=== PATIENT | female | born 1930 | race African-American/Black ===

== ENCOUNTER 2018-05-12 08:47 | Emergency (ER) | payer MEDICAID ==
[~2018-05-12] VITALS: Ht 152.4 cm; Wt 43.0 kg
[~2018-05-12 08:47] MED LIST: LORA10TA7 PO; MEMA10TA19 PO; Multivitamins,Ther W-Minerals PO; PRED1DRO BOTHEYE; SIMV20TA2 PO
[2018-05-12 11:45] VITALS: BP 126/69
== END 2018-05-12 12:40 | disposition home or self-care (01) ==
LOC: ER 08:47
DX: L03.116 Cellulitis of left lower limb (principal); L03.115 Cellulitis of right lower limb; I87.8 Other specified disorders of veins
CPT/HCPCS: 93971; 99284

== ENCOUNTER 2018-06-18 13:59 | Inpatient (IN) | payer MEDICAID ==
[~2018-06-18] VITALS: Ht 152.4 cm; Wt 43.1 kg
[2018-06-18] MEDS ORDERED: ASPI-1159 MT (14:24)
[2018-06-18] MEDS ORDERED: TYLENOL (14:24)
[2018-06-18] MEDS ORDERED: VANCOMYCIN 1 G PREMIX 200 ML IV ONE (15:15)
[2018-06-18] MEDS ORDERED: PIPERACILLIN/TAZ 3.375G PREMIX 50 ML IV ONE (15:15)
[2018-06-18] MEDS ORDERED: SODIUM CHLORIDE 0.9% 1000ML BAG (SEPSIS BOLUS) IV ONE (15:15)
[2018-06-18 16:14] LABS: BASOPHILS % 0.4 % (0.0-2.0); EOSINOPHILS % 0.1 % (0.0-5.0); HEMATOCRIT. 39.3 % (36.0-48.0); HEMOGLOBIN. 12.8 g/dL (12.0-16.0); LYMPHOCYTES % 22.5 % (20.0-50.0); MEAN CORPUSCULAR HEMOGLOBIN 30.5 pg (28.0-32.0); MEAN CORPUSCULAR VOLUME 93.5 fL (81.0-99.0); MEAN PLATELET VOLUME 7.2 fl (7.4-10.4); MONOCYTES % 6.1 % (2.0-8.0); NEUTROPHILS % 70.9 % (40.0-76.0); PLATELET 287 x1000/uL (130-400); RED CELL DISTRIBUTION WIDTH 15.6 % (11.6-14.6)
[2018-06-18 16:20] LABS: CHLORIDE 102 mEq/L (98-107)
[2018-06-18 16:21] LABS: INR 1.1
[2018-06-18 16:29] LABS: CREATINE KINASE 174 IU/L (26-192)
[2018-06-18] MEDS ORDERED: ACETAMINOPHEN 325MG TABLET PO PRN (20:00)
[2018-06-18] MEDS ORDERED: ONDANSETRON HCL 4MG/2ML INJ IV PRN (20:00)
[2018-06-18] MEDS ORDERED: CLONIDINE 0.1MG TABLET PO PRN (20:00)
[2018-06-19] VITALS: BP 138/68
[2018-06-19] MEDS ORDERED: PIPERACILLIN/TAZ 3.375G PREMIX 50 ML IV SCH (02:00)
[2018-06-19] MEDS ORDERED: ACET167L14 PO (02:00)
[2018-06-19 02:39] VITALS: BP 137/78
[2018-06-19] MEDS: PIPERACILLIN/TAZ 2.25G PREMIX 50 ML IV SCH ×4 (02:39→21:13)
[2018-06-19 04:00] VITALS: BP 123/68
[2018-06-19 08:00] VITALS: BP 86/61
[2018-06-19 11:34] LABS: BASOPHILS % 0.1 % (0.0-2.0); EOSINOPHILS % 0.1 % (0.0-5.0); HEMATOCRIT. 36.4 % (36.0-48.0); HEMOGLOBIN. 11.8 g/dL (12.0-16.0); LYMPHOCYTES % 19.9 % (20.0-50.0); MEAN CORPUSCULAR HEMOGLOBIN 30.3 pg (28.0-32.0); MEAN CORPUSCULAR VOLUME 93.5 fL (81.0-99.0); MEAN PLATELET VOLUME 7.7 fl (7.4-10.4); MONOCYTES % 5.6 % (2.0-8.0); NEUTROPHILS % 74.3 % (40.0-76.0); PLATELET 285 x1000/uL (130-400); RED BLOOD CELL COUNT 3.89 mill/uL (4.2-5.4); RED CELL DISTRIBUTION WIDTH 15.3 % (11.6-14.6)
[2018-06-19 11:57] LABS: CHLORIDE 102 mEq/L (98-107)
[2018-06-19] MEDS ORDERED: VANCOMYCIN 1250MG in DEXTROSE 5% WATER 250ML IV SCH (14:00)
[2018-06-19] MEDS: VANCOMYCIN IV SCH (14:44)
[2018-06-19] MEDS: WATER IV SCH (14:44)
[2018-06-19] MEDS: DEXT 5% IV SCH (14:44)
[2018-06-19 16:00] VITALS: BP 102/52
[2018-06-19] MEDS ORDERED: ENOXAPARIN 30MG/0.3ML SYR SUBCUT SCH (17:30)
[2018-06-19 20:00] VITALS: BP 107/67
[2018-06-20] VITALS: BP 96/74
[2018-06-20] MEDS: PIPERACILLIN/TAZ 2.25G PREMIX 50 ML IV SCH ×3 (02:20→14:00)
[2018-06-20] MEDS: VANCOMYCIN IV SCH ×2 (03:10→14:00)
[2018-06-20] MEDS: WATER IV SCH ×2 (03:10→14:00)
[2018-06-20] MEDS: DEXT 5% IV SCH ×2 (03:10→14:00)
[2018-06-20 04:00] VITALS: BP 120/53
[2018-06-20 07:21] LABS: BASOPHILS % 0.3 % (0.0-2.0); EOSINOPHILS % 0.2 % (0.0-5.0); HEMATOCRIT. 31.3 % (36.0-48.0); HEMOGLOBIN. 10.6 g/dL (12.0-16.0); MEAN CORPUSCULAR HEMOGLOBIN 31.1 pg (28.0-32.0); MEAN PLATELET VOLUME 7.7 fl (7.4-10.4); MONOCYTES % 6.3 % (2.0-8.0); NEUTROPHILS % 68.2 % (40.0-76.0); PLATELET 299 x1000/uL (130-400); RED BLOOD CELL COUNT 3.41 mill/uL (4.2-5.4); RED CELL DISTRIBUTION WIDTH 15.1 % (11.6-14.6)
[2018-06-20 07:28] LABS: CHLORIDE 102 mEq/L (98-107)
[2018-06-20 08:00] VITALS: BP 115/65
[2018-06-20] MEDS ORDERED: POTASSIUM CHLORIDE 20MEQ TABLET SR PO SCH (12:30)
[2018-06-20 12:47] VITALS: BP_SYST 118; BP_SYST 129; BP_DIAS 86; BP_DIAS 91
== END 2018-06-20 17:15 | disposition home health service (06) | DRG 720 ==
LOC: ER 13:59 → 8WST 17:05 → EDBEDREQTM 17:23 → EDBEDREQSVC 17:23 → EDBEDREQ 17:23 → ENRESERV 20:31
PROVIDERS: ADMIT Internal Medicine; ATTEND Internal Medicine
DX: A41.9 Sepsis, unspecified organism (principal); E43 Unspecified severe protein-calorie malnutrition; L89.150 Pressure ulcer of sacral region, unstageable; G93.49 Other encephalopathy; L89.210 Pressure ulcer of right hip, unstageable; L89.524 Pressure ulcer of left ankle, stage 4; L89.890 Pressure ulcer of other site, unstageable; F03.90 Unspecified dementia, unspecified severity, without behavioral disturbance, psychotic disturbance, mood disturbance, and anxiety; J44.9 Chronic obstructive pulmonary disease, unspecified; E78.00 Pure hypercholesterolemia, unspecified; E78.5 Hyperlipidemia, unspecified; E89.0 Postprocedural hypothyroidism; R62.7 Adult failure to thrive; Z74.01 Bed confinement status; Z86.73 Personal history of transient ischemic attack (TIA), and cerebral infarction without residual deficits; Z68.1 Body mass index [BMI] 19.9 or less, adult; Z79.82 Long term (current) use of aspirin; Z79.899 Other long term (current) drug therapy
CPT/HCPCS: 36415; 71045; 80048; 82550; 83036; 83605; 93005; 93970; 96365; 96366; 96367; 99291; A6261; J1650; J2543; J3370; J7030; J7040; J7060; A4315

== ENCOUNTER 2018-07-14 21:29 | Inpatient (IN) | payer MEDICAID ==
[~2018-07-14] VITALS: Ht 154.9 cm; Wt 56.7 kg
[~2018-07-14 21:29] MED LIST changes: +ACET167L14 PO; +ASPI-1159 MT
[2018-07-15] VITALS (10 sets, daily range): BP systolic 93–139; BP diastolic 54–91
[2018-07-15] MEDS ORDERED: PIPERACILLIN/TAZ 3.375G PREMIX 50 ML IV ONE (00:45)
[2018-07-15] MEDS ORDERED: VANCOMYCIN 1 G PREMIX 200 ML IV ONE (00:45)
[2018-07-15] MEDS ORDERED: SODIUM CHLORIDE 0.9% 1000ML BAG (SEPSIS BOLUS) IV ONE (00:45)
[2018-07-15 03:49] LABS: CHLORIDE 113 mEq/L (98-107)
[2018-07-15 03:51] LABS: HEMATOCRIT. 31.1 % (36.0-48.0); HEMOGLOBIN. 9.9 g/dL (12.0-16.0); MEAN CORPUSCULAR VOLUME 94.8 fL (81.0-99.0); MEAN PLATELET VOLUME 7.5 fl (7.4-10.4); PLATELET 236 x1000/uL (130-400); RED BLOOD CELL COUNT 3.29 mill/uL (4.2-5.4); RED CELL DISTRIBUTION WIDTH 14.8 % (11.6-14.6)
[2018-07-15 03:56] LABS: INR 1.1; PROTHROMBIN TIME 11.3 sec (9.1-11.1)
[2018-07-15 04:16] LABS: CLARITY URINE CLEAR (CLEAR); COLOR URINE YELLOW (YELLOW); KETONES URINE NEGATIVE (NEGATIVE); LEUKOCYTE ESTERASE URINE 3+ (NEGATIVE); NITRITE URINE POSITIVE (NEGATIVE); OCCULT BLOOD URINE 1+ (NEGATIVE); PH URINE 6.5 (4.5-8.0); PROTEIN URINE NEGATIVE (NEGATIVE); SPECIFIC GRAVITY URINE 1.009 (1.005-1.030); UROBILINOGEN URINE 0.2 E.U./dL (0.2-1.0)
[2018-07-15 04:54] LABS: PLATELET ESTIMATE NORMAL
[2018-07-15] MEDS: SODIUM CHLORIDE 0.9% 1,000 ML IV SCH (08:00)
[2018-07-15] MEDS: ENOXAPARIN 30MG/0.3ML SYR SUBCUT SCH (09:00)
[2018-07-15 09:42] LABS: INR 1.2; PARTIAL THROMBOPLASTIN TIME 32.4 sec (23.4-31.0); PROTHROMBIN TIME 11.7 sec (9.1-11.1)
[2018-07-15] MEDS ORDERED: DEXTROSE 50% WATER 50ML SYRINGE IV SCH (09:45)
[2018-07-15 09:57] LABS: PHOSPHORUS 2.5 mg/dL (2.5-4.9)
[2018-07-15] MEDS ORDERED: PIPERACILLIN/TAZ 2.25G PREMIX 50 ML IV SCH (10:00)
[2018-07-15] MEDS: ONDANSETRON HCL 4MG/2ML INJ IV PRN (10:31)
[2018-07-15] MEDS: DIPHENHYDRAMINE 50MG/ML VIAL IV PRN ×2 (10:32→18:03)
[2018-07-15] MEDS ORDERED: DILTIAZEM HCL 5MG/ML 5ML VIAL IV PRN (11:45)
[2018-07-15] MEDS: PIPERACILLIN/TAZ 2.25G PREMIX 50 ML IV SCH ×2 (12:00→18:11)
[2018-07-15] MEDS ORDERED: LIDOCAINE HCL/EPINEPHRINE 1%-EPI 1:100,000 20 ML VIAL INFIL NR (14:00)
[2018-07-15] MEDS: DILTIAZEM HCL 30MG TABLET PO SCH ×2 (14:00→21:07)
[2018-07-15] MEDS: DEXTROSE 5% WATER 1,000 ML IV SCH (18:31)
[2018-07-15] MEDS: DEXTROSE 50% WATER 50ML SYRINGE IV PRN (20:57)
[2018-07-15] MEDS: BLOOD SUGAR DIAGNOSTIC STRIP TEST SCH (20:57)
[2018-07-15] MEDS: INSULIN LISPRO 100 UNITS/ML SUBCUT SCH (20:57)
[2018-07-15 23:51] LABS: CREATINE KINASE 193 IU/L (26-192)
[2018-07-16] VITALS (17 sets, daily range): BP systolic 98–161; BP diastolic 46–83
[2018-07-16] MEDS: PIPERACILLIN/TAZ 2.25G PREMIX 50 ML IV SCH ×3 (01:12→17:36)
[2018-07-16] MEDS: VANCOMYCIN 500 MG PREMIX 100 ML IV SCH ×2 (04:15→22:20)
[2018-07-16] MEDS: DILTIAZEM HCL 30MG TABLET PO SCH ×2 (06:08→16:13)
[2018-07-16] MEDS: DEXTROSE 5% WATER 1,000 ML IV SCH ×2 (07:00→16:06)
[2018-07-16] MEDS: BLOOD SUGAR DIAGNOSTIC STRIP TEST SCH ×9 (07:30→23:00)
[2018-07-16] MEDS: DEXTROSE 50% WATER 50ML SYRINGE IV PRN ×3 (07:56→14:45)
[2018-07-16] MEDS: INSULIN LISPRO 100 UNITS/ML SUBCUT SCH ×2 (08:00→13:00)
[2018-07-16] MEDS: SODIUM CHLORIDE 0.9% 1,000 ML IV SCH (08:00)
[2018-07-16] MEDS: ENOXAPARIN 30MG/0.3ML SYR SUBCUT SCH (09:10)
[2018-07-16 10:46] LABS: BASOPHILS % 0.2 % (0.0-2.0); EOSINOPHILS % 0.5 % (0.0-5.0); HEMATOCRIT. 31.1 % (36.0-48.0); HEMOGLOBIN. 9.8 g/dL (12.0-16.0); LYMPHOCYTES % 12.1 % (20.0-50.0); MEAN CORPUSCULAR HEMOGLOBIN 29.9 pg (28.0-32.0); MEAN CORPUSCULAR VOLUME 95.2 fL (81.0-99.0); MEAN PLATELET VOLUME 8.4 fl (7.4-10.4); MONOCYTES % 2.9 % (2.0-8.0); NEUTROPHILS % 84.3 % (40.0-76.0); PLATELET 203 x1000/uL (130-400); RED BLOOD CELL COUNT 3.26 mill/uL (4.2-5.4)
[2018-07-16] MEDS ORDERED: IOHEXOL-300 50 ML BOTTLE IV ONE (11:43)
[2018-07-16] MEDS ORDERED: DEXT 10% WATER 1,000 ML IV SCH (15:00)
[2018-07-16 15:56] LABS: CHLORIDE 103 mEq/L (98-107)
[2018-07-16 16:04] LABS: LDL CHOLESTEROL 67 mg/dL (5-100)
[2018-07-16 16:07] LABS: HDL CHOLESTEROL 27 mg/dL (40-59)
[2018-07-16 17:39] LABS: BASOPHILS % 0.1 % (0.0-2.0); HEMATOCRIT. 28.4 % (36.0-48.0); HEMOGLOBIN. 9.2 g/dL (12.0-16.0); LYMPHOCYTES % 10.5 % (20.0-50.0); MEAN CORPUSCULAR HEMOGLOBIN 30.1 pg (28.0-32.0); MEAN CORPUSCULAR VOLUME 93.2 fL (81.0-99.0); MEAN PLATELET VOLUME 7.9 fl (7.4-10.4); MONOCYTES % 2.5 % (2.0-8.0); NEUTROPHILS % 86.9 % (40.0-76.0); PLATELET 212 x1000/uL (130-400); RED BLOOD CELL COUNT 3.05 mill/uL (4.2-5.4); RED CELL DISTRIBUTION WIDTH 14.5 % (11.6-14.6)
[2018-07-16] MEDS ORDERED: KCL 20MEQ/100ML PREMIX 100 ML IV NR (21:00)
[2018-07-17] VITALS (15 sets, daily range): BP systolic 94–168; BP diastolic 46–85
[2018-07-17] MEDS: BLOOD SUGAR DIAGNOSTIC STRIP TEST SCH ×12 (01:00→21:33)
[2018-07-17] MEDS: PIPERACILLIN/TAZ 2.25G PREMIX 50 ML IV SCH ×3 (02:11→17:16)
[2018-07-17] MEDS: DILTIAZEM HCL 30MG TABLET PO SCH ×4 (02:27→21:33)
[2018-07-17] MEDS: DEXTROSE 5% WATER 1,000 ML IV SCH ×2 (05:29→17:17)
[2018-07-17 05:40] LABS: CHLORIDE 101 mEq/L (98-107)
[2018-07-17 05:42] LABS: BASOPHILS % 0.2 % (0.0-2.0); EOSINOPHILS % 0.2 % (0.0-5.0); HEMATOCRIT. 29.1 % (36.0-48.0); HEMOGLOBIN. 9.4 g/dL (12.0-16.0); LYMPHOCYTES % 13.8 % (20.0-50.0); MEAN CORPUSCULAR HEMOGLOBIN 30.1 pg (28.0-32.0); MEAN CORPUSCULAR VOLUME 93.3 fL (81.0-99.0); MEAN PLATELET VOLUME 8.6 fl (7.4-10.4); MONOCYTES % 2.5 % (2.0-8.0); NEUTROPHILS % 83.3 % (40.0-76.0); PLATELET 196 x1000/uL (130-400); RED BLOOD CELL COUNT 3.12 mill/uL (4.2-5.4); RED CELL DISTRIBUTION WIDTH 14.5 % (11.6-14.6)
[2018-07-17] MEDS: ENOXAPARIN 30MG/0.3ML SYR SUBCUT SCH (09:28)
[2018-07-17] MEDS ORDERED: LIDOCAINE HCL/EPINEPHRINE 1%-EPI 1:100,000 20 ML VIAL INFIL NR (10:30)
[2018-07-17] MEDS ORDERED: POTASSIUM CHLORIDE INJ 40 MEQ in DEXT 5% WATER 250 ML IV NR (11:00)
[2018-07-17] MEDS: VANCOMYCIN IV SCH ×2 (11:52→18:23)
[2018-07-17] MEDS: DEXT 5% IV SCH ×2 (11:52→18:23)
[2018-07-17] MEDS: WATER IV SCH ×2 (11:52→18:23)
[2018-07-17] MEDS: INSULIN LISPRO 100 UNITS/ML SUBCUT SCH ×3 (12:00→21:00)
[2018-07-18] MEDS: VANCOMYCIN IV SCH ×2 (05:56→16:29)
[2018-07-18] MEDS: WATER IV SCH ×2 (05:56→16:29)
[2018-07-18] MEDS: DEXT 5% IV SCH ×2 (05:56→16:29)
[2018-07-18] MEDS: PIPERACILLIN/TAZ 2.25G PREMIX 50 ML IV SCH ×3 (05:56→17:36)
[2018-07-18] MEDS: DILTIAZEM HCL 30MG TABLET PO SCH ×3 (06:19→21:19)
[2018-07-18] MEDS: BLOOD SUGAR DIAGNOSTIC STRIP TEST SCH ×4 (06:26→21:00)
[2018-07-18 07:29] LABS: CHLORIDE 98 mEq/L (98-107)
[2018-07-18 07:36] LABS: BASOPHILS % 0.2 % (0.0-2.0); HEMOGLOBIN. 8.4 g/dL (12.0-16.0); LYMPHOCYTES % 12.6 % (20.0-50.0); MEAN CORPUSCULAR HEMOGLOBIN 29.6 pg (28.0-32.0); MEAN CORPUSCULAR VOLUME 91.2 fL (81.0-99.0); MONOCYTES % 2.3 % (2.0-8.0); NEUTROPHILS % 84.9 % (40.0-76.0); PLATELET 225 x1000/uL (130-400); RED BLOOD CELL COUNT 2.85 mill/uL (4.2-5.4); RED CELL DISTRIBUTION WIDTH 14.1 % (11.6-14.6)
[2018-07-18] MEDS: INSULIN LISPRO 100 UNITS/ML SUBCUT SCH ×4 (08:00→21:00)
[2018-07-18 08:14] VITALS: BP 83/55
[2018-07-18] MEDS: ENOXAPARIN 30MG/0.3ML SYR SUBCUT SCH (09:00)
[2018-07-18 09:51] VITALS: BP 99/44
[2018-07-18] MEDS: DEXT 5%/0.45% NACL 1000ML 1,000 ML IV SCH (11:52)
[2018-07-18 11:53] VITALS: BP 90/41
[2018-07-18] MEDS ORDERED: DIGOXIN 500MCG/2ML AMP IV ONE ×3 (12:45→20:00)
[2018-07-18 13:55] VITALS: BP 109/92
[2018-07-18] MEDS ORDERED: LIDOCAINE HCL/EPINEPHRINE 1%-EPI 1:100,000 20 ML VIAL INFIL ONE (15:30)
[2018-07-18 16:00] VITALS: BP 107/54
[2018-07-18] MEDS ORDERED: WATER IV SCH (16:00)
[2018-07-18] MEDS ORDERED: VANCOMYCIN IV SCH (16:00)
[2018-07-18] MEDS ORDERED: DEXT 5% IV SCH (16:00)
[2018-07-18] MEDS: DIPHENHYDRAMINE 50MG/ML VIAL IV PRN (17:47)
[2018-07-18] MEDS ORDERED: DIGOXIN 500MCG/2ML AMP IV SCH (18:00)
[2018-07-18 18:11] VITALS: BP 110/83
[2018-07-19] VITALS (17 sets, daily range): BP systolic 56–123; BP diastolic 29–77
[2018-07-19] MEDS: DEXT 5%/0.45% NACL 1000ML 1,000 ML IV SCH (01:15)
[2018-07-19] MEDS: VANCOMYCIN IV SCH ×4 (01:15→23:27)
[2018-07-19] MEDS: DEXT 5% IV SCH ×4 (01:15→23:27)
[2018-07-19] MEDS: WATER IV SCH ×4 (01:15→23:27)
[2018-07-19] MEDS: DEXTROSE 50% WATER 50ML SYRINGE IV PRN ×5 (01:21→19:34)
[2018-07-19] MEDS: PIPERACILLIN/TAZ 2.25G PREMIX 50 ML IV SCH ×3 (03:16→21:43)
[2018-07-19] MEDS: DILTIAZEM HCL 30MG TABLET PO SCH (05:40)
[2018-07-19 05:53] LABS: CHLORIDE 102 mEq/L (98-107)
[2018-07-19 06:54] LABS: HEMOGLOBIN. 9.7 g/dL (12.0-16.0); MEAN CORPUSCULAR HEMOGLOBIN 29.9 pg (28.0-32.0); MEAN CORPUSCULAR VOLUME 95.1 fL (81.0-99.0); MEAN PLATELET VOLUME 8.4 fl (7.4-10.4); PLATELET 201 x1000/uL (130-400); RED BLOOD CELL COUNT 3.26 mill/uL (4.2-5.4); RED CELL DISTRIBUTION WIDTH 14.7 % (11.6-14.6)
[2018-07-19] MEDS: BLOOD SUGAR DIAGNOSTIC STRIP TEST SCH ×4 (07:30→21:00)
[2018-07-19] MEDS: INSULIN LISPRO 100 UNITS/ML SUBCUT SCH ×3 (08:00→21:00)
[2018-07-19] MEDS: ENOXAPARIN 30MG/0.3ML SYR SUBCUT SCH (09:00)
[2018-07-19 09:14] LABS: PLATELET ESTIMATE NORMAL
[2018-07-19] MEDS ORDERED: NON FORMULARY PATIENT HOME MED XX SCH (11:00)
[2018-07-19] MEDS: AMIODARONE HCL 200 MG TABLET PO SCH (14:03)
[2018-07-19] MEDS: DEXT 10%/0.45% NACL 1,000 ML IV SCH (14:04)
[2018-07-19] MEDS: DIGOXIN 250MCG TABLET PO SCH (17:52)
[2018-07-20] VITALS (14 sets, daily range): BP systolic 69–186; BP diastolic 19–126
[2018-07-20] MEDS: DEXT 10%/0.45% NACL 1,000 ML IV SCH ×2 (00:38→12:42)
[2018-07-20] MEDS: PIPERACILLIN/TAZ 2.25G PREMIX 50 ML IV SCH ×3 (05:05→23:57)
[2018-07-20 06:19] LABS: BASOPHILS % 0.2 % (0.0-2.0); EOSINOPHILS % 0.7 % (0.0-5.0); HEMATOCRIT. 27.3 % (36.0-48.0); HEMOGLOBIN. 8.9 g/dL (12.0-16.0); LYMPHOCYTES % 10.2 % (20.0-50.0); MEAN CORPUSCULAR VOLUME 92.2 fL (81.0-99.0); MEAN PLATELET VOLUME 8.2 fl (7.4-10.4); MONOCYTES % 3.2 % (2.0-8.0); NEUTROPHILS % 85.7 % (40.0-76.0); PLATELET 219 x1000/uL (130-400); RED BLOOD CELL COUNT 2.96 mill/uL (4.2-5.4); RED CELL DISTRIBUTION WIDTH 14.1 % (11.6-14.6)
[2018-07-20 06:37] LABS: CHLORIDE 97 mEq/L (98-107)
[2018-07-20] MEDS: BLOOD SUGAR DIAGNOSTIC STRIP TEST SCH ×4 (07:30→21:00)
[2018-07-20] MEDS ORDERED: POTASSIUM CHLORIDE 20MEQ/PACKET PO NR (07:45)
[2018-07-20] MEDS: INSULIN LISPRO 100 UNITS/ML SUBCUT SCH ×4 (08:00→22:04)
[2018-07-20] MEDS: AMIODARONE HCL 200 MG TABLET PO SCH ×2 (09:28→21:55)
[2018-07-20] MEDS: ENOXAPARIN 30MG/0.3ML SYR SUBCUT SCH (09:29)
[2018-07-20] MEDS: WATER IV SCH ×2 (09:29→17:45)
[2018-07-20] MEDS: VANCOMYCIN IV SCH ×2 (09:29→17:45)
[2018-07-20] MEDS: DEXT 5% IV SCH ×2 (09:29→17:45)
[2018-07-20] MEDS ORDERED: POTASSIUM CHLORIDE INJ 40 MEQ in DEXT 5% WATER 250 ML IV NR (09:30)
[2018-07-20] MEDS: DEXTROSE 50% WATER 50ML SYRINGE IV PRN (09:30)
[2018-07-20 17:10] LABS: CHLORIDE 102 mEq/L (98-107)
[2018-07-20] MEDS: DIGOXIN 250MCG TABLET PO SCH (17:45)
[2018-07-21] VITALS (13 sets, daily range): BP systolic 44–117; BP diastolic 26–92
[2018-07-21] MEDS: WATER IV SCH ×3 (00:31→22:05)
[2018-07-21] MEDS: DEXT 5% IV SCH ×3 (00:31→22:05)
[2018-07-21] MEDS: VANCOMYCIN IV SCH ×3 (00:31→22:05)
[2018-07-21] MEDS: DEXT 10%/0.45% NACL 1,000 ML IV SCH ×2 (02:29→16:15)
[2018-07-21] MEDS: PIPERACILLIN/TAZ 2.25G PREMIX 50 ML IV SCH ×3 (05:19→19:24)
[2018-07-21 07:30] LABS: BASOPHILS % 0.1 % (0.0-2.0); EOSINOPHILS % 0.6 % (0.0-5.0); HEMATOCRIT. 25.9 % (36.0-48.0); HEMOGLOBIN. 8.4 g/dL (12.0-16.0); LYMPHOCYTES % 8.6 % (20.0-50.0); MEAN CORPUSCULAR HEMOGLOBIN 29.6 pg (28.0-32.0); MEAN CORPUSCULAR VOLUME 91.2 fL (81.0-99.0); MONOCYTES % 3.4 % (2.0-8.0); NEUTROPHILS % 87.3 % (40.0-76.0); PLATELET 227 x1000/uL (130-400); RED BLOOD CELL COUNT 2.84 mill/uL (4.2-5.4); RED CELL DISTRIBUTION WIDTH 14.3 % (11.6-14.6)
[2018-07-21 07:34] LABS: CHLORIDE 99 mEq/L (98-107)
[2018-07-21 08:03] LABS: DIGOXIN 2.8 ng/mL (0.9-2.0)
[2018-07-21] MEDS: BLOOD SUGAR DIAGNOSTIC STRIP TEST SCH ×4 (08:26→21:00)
[2018-07-21] MEDS: INSULIN LISPRO 100 UNITS/ML SUBCUT SCH ×4 (08:53→21:00)
[2018-07-21] MEDS: AMIODARONE HCL 200 MG TABLET PO SCH ×2 (08:53→22:01)
[2018-07-21] MEDS: ENOXAPARIN 30MG/0.3ML SYR SUBCUT SCH (08:54)
[2018-07-21] MEDS: DEXT 5%/0.9% NACL 1,000 ML IV SCH (19:24)
[2018-07-22] VITALS (20 sets, daily range): BP systolic 67–138; BP diastolic 21–90
[2018-07-22] MEDS: PIPERACILLIN/TAZ 2.25G PREMIX 50 ML IV SCH ×5 (00:23→23:44)
[2018-07-22 06:08] LABS: BASOPHILS % 0.2 % (0.0-2.0); EOSINOPHILS % 0.6 % (0.0-5.0); HEMATOCRIT. 22.9 % (36.0-48.0); HEMOGLOBIN. 7.5 g/dL (12.0-16.0); LYMPHOCYTES % 7.6 % (20.0-50.0); MEAN CORPUSCULAR HEMOGLOBIN 30.1 pg (28.0-32.0); MEAN CORPUSCULAR VOLUME 91.5 fL (81.0-99.0); MEAN PLATELET VOLUME 8.1 fl (7.4-10.4); MONOCYTES % 2.9 % (2.0-8.0); NEUTROPHILS % 88.7 % (40.0-76.0); PLATELET 211 x1000/uL (130-400); RED CELL DISTRIBUTION WIDTH 14.4 % (11.6-14.6)
[2018-07-22] MEDS: INSULIN LISPRO 100 UNITS/ML SUBCUT SCH ×4 (08:00→21:00)
[2018-07-22] MEDS: DEXT 5% IV SCH ×2 (08:02→21:01)
[2018-07-22] MEDS: WATER IV SCH ×2 (08:02→21:01)
[2018-07-22] MEDS: VANCOMYCIN IV SCH ×2 (08:02→21:01)
[2018-07-22] MEDS: BLOOD SUGAR DIAGNOSTIC STRIP TEST SCH ×4 (08:20→21:16)
[2018-07-22] MEDS: AMIODARONE HCL 200 MG TABLET PO SCH ×2 (08:45→21:15)
[2018-07-22] MEDS: ASCORBIC ACID 500 MG TABLET NG SCH (08:45)
[2018-07-22 08:46] LABS: CHLORIDE 100 mEq/L (98-107)
[2018-07-22] MEDS: MULTIVITAMINS,THER W-MINERALS TABLET NG SCH (08:46)
[2018-07-22] MEDS: ZINC SULFATE 220 MG ( 50 ) CAPSULE NG SCH (08:46)
[2018-07-22] MEDS: ENOXAPARIN 30MG/0.3ML SYR SUBCUT SCH (08:46)
[2018-07-22 09:31] LABS: DIGOXIN 2.7 ng/mL (0.9-2.0)
[2018-07-22] MEDS: MIDODRINE HCL 5MG TABLET PO SCH ×3 (12:41→17:41)
[2018-07-22 17:17] LABS: TOTAL IRON BINDING CAPACITY 257 ug/dL (250-450)
[2018-07-22] MEDS: DIGOXIN 125MCG TABLET PO SCH (17:41)
[2018-07-22] MEDS: DEXT 5%/0.9% NACL 1,000 ML IV SCH (17:42)
[2018-07-22] MEDS: SODIUM HYPOCHLORITE 0.125% 473ML SOLUTION TOP SCH (21:01)
[2018-07-23] VITALS (16 sets, daily range): BP systolic 107–152; BP diastolic 47–82
[2018-07-23] MEDS: PIPERACILLIN/TAZ 2.25G PREMIX 50 ML IV SCH ×4 (05:48→23:33)
[2018-07-23 06:38] LABS: HEMATOCRIT. 21.3 % (36.0-48.0); MEAN CORPUSCULAR HEMOGLOBIN 29.2 pg (28.0-32.0); MEAN CORPUSCULAR VOLUME 90.5 fL (81.0-99.0); MEAN PLATELET VOLUME 7.8 fl (7.4-10.4); PLATELET 220 x1000/uL (130-400); RED BLOOD CELL COUNT 2.35 mill/uL (4.2-5.4); RED CELL DISTRIBUTION WIDTH 14.4 % (11.6-14.6)
[2018-07-23 06:58] LABS: INR 1.1; PARTIAL THROMBOPLASTIN TIME 31.4 sec (23.4-31.0); PROTHROMBIN TIME 10.9 sec (9.1-11.1)
[2018-07-23 07:15] LABS: CHLORIDE 102 mEq/L (98-107)
[2018-07-23 07:37] LABS: HEMOGLOBIN. 6.9 g/dL (12.0-16.0)
[2018-07-23] MEDS: INSULIN LISPRO 100 UNITS/ML SUBCUT SCH ×4 (08:00→21:00)
[2018-07-23] MEDS: BLOOD SUGAR DIAGNOSTIC STRIP TEST SCH ×4 (08:22→21:00)
[2018-07-23] MEDS: ASCORBIC ACID 500 MG TABLET NG SCH (08:39)
[2018-07-23] MEDS: WATER IV SCH (08:39)
[2018-07-23] MEDS: MULTIVITAMINS,THER W-MINERALS TABLET NG SCH ×2 (08:39→09:00)
[2018-07-23] MEDS: VANCOMYCIN IV SCH (08:39)
[2018-07-23] MEDS: DEXT 5% IV SCH (08:39)
[2018-07-23] MEDS: MIDODRINE HCL 5MG TABLET PO SCH ×4 (08:39→19:17)
[2018-07-23] MEDS: ZINC SULFATE 220 MG ( 50 ) CAPSULE NG SCH ×2 (08:40→09:00)
[2018-07-23] MEDS: AMIODARONE HCL 200 MG TABLET PO SCH ×3 (08:42→21:03)
[2018-07-23 13:13] LABS: HEMOGLOBIN 7.7 g/dL (12.0-16.0); MEAN CORPUSCULAR HEMOGLOBIN 29.9 pg (28.0-32.0); MEAN CORPUSCULAR VOLUME 93.6 fL (81.0-99.0); PLATELET 224 x1000/uL (130-400); RED BLOOD CELL COUNT 2.56 mill/uL (4.2-5.4); RED CELL DISTRIBUTION WIDTH 14.8 % (11.6-14.6)
[2018-07-23 13:31] LABS: PLATELET ESTIMATE NORMAL
[2018-07-23] MEDS ORDERED: SODIUM CHLORIDE 0.9% 10ML VIAL ONE (15:03)
[2018-07-23] MEDS ORDERED: SIMETHICONE 40 MG/0.6 ML 30ML ONE (15:03)
[2018-07-23] MEDS ORDERED: FENTANYL CITRATE/PF 50MCG/ML 2ML VIAL IV PRN (16:54)
[2018-07-23] MEDS ORDERED: MIDAZOLAM HCL 5 MG/5 ML VIAL IV PRN (16:56)
[2018-07-23] MEDS ORDERED: MIDAZOLAM HCL 5 MG/5 ML VIAL ONE (16:57)
[2018-07-23] MEDS ORDERED: FENTANYL CITRATE/PF 50MCG/ML 2ML VIAL ONE (16:57)
[2018-07-23] MEDS: DIGOXIN 125MCG TABLET PO SCH (19:17)
[2018-07-23] MEDS: DEXT 5%/0.9% NACL 1,000 ML IV SCH (19:18)
[2018-07-23] MEDS: SUCRALFATE 1 G/10 ML UDC GT SCH ×2 (19:21→23:33)
[2018-07-23] MEDS: METOCLOPRAMIDE HCL 10MG/2ML VIAL IV SCH ×2 (19:30→23:33)
[2018-07-23] MEDS: PANTOPRAZOLE SODIUM 40 MG/VIAL IV SCH (21:03)
[2018-07-24] VITALS (11 sets, daily range): BP systolic 125–153; BP diastolic 50–84
[2018-07-24] MEDS: SUCRALFATE 1 G/10 ML UDC GT SCH ×3 (05:04→17:36)
[2018-07-24] MEDS: METOCLOPRAMIDE HCL 10MG/2ML VIAL IV SCH ×3 (05:04→17:36)
[2018-07-24] MEDS: BLOOD SUGAR DIAGNOSTIC STRIP TEST SCH ×3 (05:04→18:51)
[2018-07-24] MEDS: INSULIN LISPRO 100 UNITS/ML SUBCUT SCH ×3 (05:05→18:00)
[2018-07-24] MEDS: PIPERACILLIN/TAZ 2.25G PREMIX 50 ML IV SCH ×3 (05:05→17:37)
[2018-07-24] MEDS ORDERED: VANCOMYCIN 500 MG PREMIX 100 ML IV SCH (06:00)
[2018-07-24 06:46] LABS: CHLORIDE 102 mEq/L (98-107)
[2018-07-24 07:09] LABS: HEMATOCRIT. 33.8 % (36.0-48.0); HEMOGLOBIN. 10.9 g/dL (12.0-16.0); MEAN CORPUSCULAR HEMOGLOBIN 29.7 pg (28.0-32.0); MEAN CORPUSCULAR VOLUME 91.8 fL (81.0-99.0); MEAN PLATELET VOLUME 8.1 fl (7.4-10.4); PLATELET 253 x1000/uL (130-400); RED BLOOD CELL COUNT 3.68 mill/uL (4.2-5.4); RED CELL DISTRIBUTION WIDTH 14.7 % (11.6-14.6)
[2018-07-24] MEDS: PANTOPRAZOLE SODIUM 40 MG/VIAL IV SCH ×2 (08:37→21:27)
[2018-07-24] MEDS: MULTIVITAMINS,THER W-MINERALS TABLET NG SCH (08:37)
[2018-07-24] MEDS: ASCORBIC ACID 500 MG TABLET NG SCH (08:37)
[2018-07-24] MEDS: ZINC SULFATE 220 MG ( 50 ) CAPSULE NG SCH (08:37)
[2018-07-24] MEDS: MIDODRINE HCL 5MG TABLET PO SCH ×3 (08:48→17:36)
[2018-07-24] MEDS: AMIODARONE HCL 200 MG TABLET PO SCH ×2 (08:59→21:27)
[2018-07-24 12:14] LABS: PLATELET ESTIMATE NORMAL
[2018-07-24] MEDS: SODIUM HYPOCHLORITE 0.125% 473ML SOLUTION TOP SCH (17:36)
[2018-07-24] MEDS: DIGOXIN 125MCG TABLET PO SCH (17:36)
[2018-07-24] MEDS: DEXT 5%/0.9% NACL 1,000 ML IV SCH (17:37)
[2018-07-24] MEDS: VANCOMYCIN 1 G PREMIX 200 ML IV SCH (21:27)
[2018-07-25] VITALS (9 sets, daily range): BP systolic 103–158; BP diastolic 48–72
[2018-07-25] MEDS: SUCRALFATE 1 G/10 ML UDC GT SCH ×5 (00:18→23:40)
[2018-07-25] MEDS: METOCLOPRAMIDE HCL 10MG/2ML VIAL IV SCH ×5 (00:18→23:40)
[2018-07-25] MEDS: PIPERACILLIN/TAZ 2.25G PREMIX 50 ML IV SCH ×5 (00:18→23:39)
[2018-07-25] MEDS: BLOOD SUGAR DIAGNOSTIC STRIP TEST SCH ×5 (00:25→23:31)
[2018-07-25] MEDS: DEXTROSE 50% WATER 50ML SYRINGE IV PRN (00:28)
[2018-07-25] MEDS: INSULIN LISPRO 100 UNITS/ML SUBCUT SCH ×5 (06:00→23:31)
[2018-07-25 07:04] LABS: HEMATOCRIT. 30.8 % (36.0-48.0); HEMOGLOBIN. 10.3 g/dL (12.0-16.0); MEAN CORPUSCULAR VOLUME 89.8 fL (81.0-99.0); MEAN PLATELET VOLUME 8.2 fl (7.4-10.4); PLATELET 280 x1000/uL (130-400); RED BLOOD CELL COUNT 3.43 mill/uL (4.2-5.4); RED CELL DISTRIBUTION WIDTH 14.4 % (11.6-14.6)
[2018-07-25 07:41] LABS: CHLORIDE 102 mEq/L (98-107)
[2018-07-25] MEDS: MULTIVITAMINS,THER W-MINERALS TABLET NG SCH (10:33)
[2018-07-25] MEDS: ZINC SULFATE 220 MG ( 50 ) CAPSULE NG SCH (10:34)
[2018-07-25] MEDS: PANTOPRAZOLE SODIUM 40 MG/VIAL IV SCH ×2 (10:34→20:28)
[2018-07-25] MEDS: ASCORBIC ACID 500 MG TABLET NG SCH (10:34)
[2018-07-25] MEDS: AMIODARONE HCL 200 MG TABLET PO SCH ×2 (10:34→20:28)
[2018-07-25 12:15] LABS: PLATELET ESTIMATE NORMAL
[2018-07-25] MEDS: MIDODRINE HCL 5MG TABLET PO SCH ×2 (13:35→17:00)
[2018-07-25] MEDS: DIGOXIN 125MCG TABLET PO SCH (18:09)
[2018-07-25] MEDS: DEXT 5%/0.9% NACL 1,000 ML IV SCH (18:09)
[2018-07-26] VITALS (7 sets, daily range): BP systolic 112–140; BP diastolic 54–65
[2018-07-26 05:49] LABS: HEMATOCRIT. 28.1 % (36.0-48.0); HEMOGLOBIN. 9.2 g/dL (12.0-16.0); MEAN CORPUSCULAR HEMOGLOBIN 29.5 pg (28.0-32.0); MEAN CORPUSCULAR VOLUME 90.1 fL (81.0-99.0); MEAN PLATELET VOLUME 8.1 fl (7.4-10.4); PLATELET 278 x1000/uL (130-400); RED BLOOD CELL COUNT 3.11 mill/uL (4.2-5.4); RED CELL DISTRIBUTION WIDTH 14.6 % (11.6-14.6)
[2018-07-26 06:00] LABS: CHLORIDE 105 mEq/L (98-107)
[2018-07-26] MEDS: INSULIN LISPRO 100 UNITS/ML SUBCUT SCH ×3 (06:00→18:08)
[2018-07-26] MEDS: BLOOD SUGAR DIAGNOSTIC STRIP TEST SCH ×3 (06:03→17:52)
[2018-07-26] MEDS: PIPERACILLIN/TAZ 2.25G PREMIX 50 ML IV SCH ×3 (06:18→17:52)
[2018-07-26] MEDS: SUCRALFATE 1 G/10 ML UDC GT SCH ×3 (06:18→17:39)
[2018-07-26] MEDS: METOCLOPRAMIDE HCL 10MG/2ML VIAL IV SCH ×3 (06:18→17:39)
[2018-07-26 06:24] LABS: DIGOXIN 2.7 ng/mL (0.9-2.0)
[2018-07-26] MEDS: ZINC SULFATE 220 MG ( 50 ) CAPSULE NG SCH (08:39)
[2018-07-26] MEDS: VANCOMYCIN 1 G PREMIX 200 ML IV SCH (08:39)
[2018-07-26] MEDS: MULTIVITAMINS,THER W-MINERALS TABLET NG SCH (08:39)
[2018-07-26] MEDS: PANTOPRAZOLE SODIUM 40 MG/VIAL IV SCH ×2 (08:39→20:49)
[2018-07-26] MEDS: ASCORBIC ACID 500 MG TABLET NG SCH (08:40)
[2018-07-26] MEDS: AMIODARONE HCL 200 MG TABLET PO SCH ×2 (09:04→20:49)
[2018-07-26] MEDS: MIDODRINE HCL 5MG TABLET PO SCH ×3 (09:05→17:00)
[2018-07-26] MEDS: IPRATROPIUM/ALBUTEROL 0.5-3(2.5)MG/3ML NEB INH PRN (09:06)
[2018-07-26 09:56] LABS: PLATELET ESTIMATE NORMAL
[2018-07-26] MEDS: METHYLPREDNISOLONE SOD SUCC 40 MG/ML VIAL IV SCH ×2 (11:03→17:40)
[2018-07-26] MEDS ORDERED: IPRATROPIUM/ALBUTEROL 0.5-3(2.5)MG/3ML NEB HHN SCH (12:00)
[2018-07-26] MEDS: IPRATROPIUM BROMIDE (0.02%) 0.5MG/2.5ML NEB HHN SCH ×2 (16:45→20:11)
[2018-07-26] MEDS: SODIUM HYPOCHLORITE 0.125% 473ML SOLUTION TOP SCH (16:53)
[2018-07-26] MEDS: SODIUM CHLORIDE 0.9% 1,000 ML IV SCH (17:41)
[2018-07-27] VITALS (7 sets, daily range): BP systolic 128–145; BP diastolic 52–73
[2018-07-27] MEDS: IPRATROPIUM BROMIDE (0.02%) 0.5MG/2.5ML NEB HHN SCH ×6 (00:11→22:10)
[2018-07-27] MEDS: ACETYLCYSTEINE 100MG/ML 10% VIAL 4ML INH SCH ×3 (00:11→15:51)
[2018-07-27] MEDS: BLOOD SUGAR DIAGNOSTIC STRIP TEST SCH ×4 (00:34→17:57)
[2018-07-27] MEDS: SUCRALFATE 1 G/10 ML UDC GT SCH ×4 (00:42→17:47)
[2018-07-27] MEDS: INSULIN LISPRO 100 UNITS/ML SUBCUT SCH ×4 (00:43→17:57)
[2018-07-27] MEDS: METOCLOPRAMIDE HCL 10MG/2ML VIAL IV SCH ×4 (00:43→17:47)
[2018-07-27] MEDS: METHYLPREDNISOLONE SOD SUCC 40 MG/ML VIAL IV SCH ×3 (01:02→22:43)
[2018-07-27 06:56] LABS: CHLORIDE 104 mEq/L (98-107)
[2018-07-27 07:06] LABS: HEMATOCRIT. 28.1 % (36.0-48.0); HEMOGLOBIN. 9.3 g/dL (12.0-16.0); MEAN CORPUSCULAR HEMOGLOBIN 30.3 pg (28.0-32.0); MEAN CORPUSCULAR VOLUME 91.5 fL (81.0-99.0); MEAN PLATELET VOLUME 8.2 fl (7.4-10.4); PLATELET 326 x1000/uL (130-400); RED BLOOD CELL COUNT 3.08 mill/uL (4.2-5.4); RED CELL DISTRIBUTION WIDTH 14.5 % (11.6-14.6)
[2018-07-27 07:45] LABS: DIGOXIN 2.2 ng/mL (0.9-2.0)
[2018-07-27 09:38] LABS: PLATELET ESTIMATE NORMAL
[2018-07-27] MEDS: ZINC SULFATE 220 MG ( 50 ) CAPSULE NG SCH (10:18)
[2018-07-27] MEDS: PANTOPRAZOLE SODIUM 40 MG/VIAL IV SCH ×2 (10:18→22:43)
[2018-07-27] MEDS: MIDODRINE HCL 5MG TABLET PO SCH ×3 (10:18→17:00)
[2018-07-27] MEDS: AMIODARONE HCL 200 MG TABLET PO SCH ×2 (10:18→22:42)
[2018-07-27] MEDS: ASCORBIC ACID 500 MG TABLET NG SCH (10:18)
[2018-07-27] MEDS: MULTIVITAMINS,THER W-MINERALS TABLET NG SCH (10:18)
[2018-07-27] MEDS ORDERED: DIGOXIN 125MCG TABLET PO SCH (18:00)
[2018-07-28] VITALS: BP 147/82
[2018-07-28] MEDS: IPRATROPIUM/ALBUTEROL 0.5-3(2.5)MG/3ML NEB INH PRN ×2 (00:28→14:57)
[2018-07-28] MEDS: ACETYLCYSTEINE 100MG/ML 10% VIAL 4ML INH SCH ×2 (00:28→14:57)
[2018-07-28] MEDS: IPRATROPIUM BROMIDE (0.02%) 0.5MG/2.5ML NEB HHN SCH ×4 (00:29→20:51)
[2018-07-28] MEDS: BLOOD SUGAR DIAGNOSTIC STRIP TEST SCH ×4 (00:42→18:00)
[2018-07-28] MEDS: METOCLOPRAMIDE HCL 10MG/2ML VIAL IV SCH ×4 (00:43→18:00)
[2018-07-28] MEDS: SUCRALFATE 1 G/10 ML UDC GT SCH ×4 (00:44→18:00)
[2018-07-28] MEDS: SODIUM CHLORIDE 0.9% 1,000 ML IV SCH (00:50)
[2018-07-28 04:00] VITALS: BP 142/77
[2018-07-28] MEDS: INSULIN LISPRO 100 UNITS/ML SUBCUT SCH ×4 (06:00→18:00)
[2018-07-28] MEDS: METHYLPREDNISOLONE SOD SUCC 40 MG/ML VIAL IV SCH ×2 (06:18→14:08)
[2018-07-28 08:03] VITALS: BP 106/64
[2018-07-28] MEDS: MIDODRINE HCL 5MG TABLET PO SCH ×3 (09:29→18:00)
[2018-07-28] MEDS: ASCORBIC ACID 500 MG TABLET NG SCH (09:30)
[2018-07-28] MEDS: MULTIVITAMINS,THER W-MINERALS TABLET NG SCH (09:30)
[2018-07-28] MEDS: ZINC SULFATE 220 MG ( 50 ) CAPSULE NG SCH (09:30)
[2018-07-28] MEDS: PANTOPRAZOLE SODIUM 40 MG/VIAL IV SCH (09:31)
[2018-07-28] MEDS: AMIODARONE HCL 200 MG TABLET PO SCH (09:31)
[2018-07-28] MEDS ORDERED: SODIUM BICARBONATE 4% (2.4MEQ) 5ML VIAL IV ONE ×2 (10:47→11:59)
[2018-07-28] MEDS ORDERED: LIDOCAINE HCL 1% 20ML VIAL (Pyxis) INJ ONE (11:59)
[2018-07-28 13:05] VITALS: BP 134/66
[2018-07-28] MEDS ORDERED: DILTIAZEM HCL 5MG/ML 5ML VIAL IV PRN (13:30)
[2018-07-28 15:26] LABS: CHLORIDE 107 mEq/L (98-107)
[2018-07-28 15:27] LABS: HEMATOCRIT. 28.4 % (36.0-48.0); HEMOGLOBIN. 9.6 g/dL (12.0-16.0); MEAN CORPUSCULAR HEMOGLOBIN 30.5 pg (28.0-32.0); MEAN CORPUSCULAR VOLUME 90.6 fL (81.0-99.0); MEAN PLATELET VOLUME 7.9 fl (7.4-10.4); PLATELET 395 x1000/uL (130-400); RED BLOOD CELL COUNT 3.14 mill/uL (4.2-5.4); RED CELL DISTRIBUTION WIDTH 15.1 % (11.6-14.6)
[2018-07-28 15:45] LABS: DIGOXIN 2.2 ng/mL (0.9-2.0)
[2018-07-28 16:00] VITALS: BP 132/68
[2018-07-28] MEDS: SODIUM HYPOCHLORITE 0.125% 473ML SOLUTION TOP SCH (16:00)
[2018-07-28 16:16] LABS: PLATELET ESTIMATE NORMAL
[2018-07-28 20:00] VITALS: BP 145/59
[2018-07-29] VITALS (12 sets, daily range): BP systolic 118–202; BP diastolic 61–110
[2018-07-29] MEDS: IPRATROPIUM BROMIDE (0.02%) 0.5MG/2.5ML NEB HHN SCH ×6 (02:17→21:01)
[2018-07-29] MEDS: ACETYLCYSTEINE 100MG/ML 10% VIAL 4ML INH SCH ×3 (02:17→15:55)
[2018-07-29] MEDS: METOCLOPRAMIDE HCL 10MG/2ML VIAL IV SCH ×4 (03:02→17:19)
[2018-07-29] MEDS: SUCRALFATE 1 G/10 ML UDC GT SCH ×4 (03:02→17:19)
[2018-07-29] MEDS: PANTOPRAZOLE SODIUM 40 MG/VIAL IV SCH ×3 (03:02→21:00)
[2018-07-29] MEDS: AMIODARONE HCL 200 MG TABLET PO SCH ×3 (03:02→21:00)
[2018-07-29] MEDS: METHYLPREDNISOLONE SOD SUCC 40 MG/ML VIAL IV SCH ×3 (03:03→11:58)
[2018-07-29] MEDS: BLOOD SUGAR DIAGNOSTIC STRIP TEST SCH ×4 (06:41→18:00)
[2018-07-29] MEDS: INSULIN LISPRO 100 UNITS/ML SUBCUT SCH ×4 (06:44→22:46)
[2018-07-29] MEDS: ASCORBIC ACID 500 MG TABLET NG SCH (10:05)
[2018-07-29] MEDS: MULTIVITAMINS,THER W-MINERALS TABLET NG SCH (10:06)
[2018-07-29] MEDS: ZINC SULFATE 220 MG ( 50 ) CAPSULE NG SCH (10:06)
[2018-07-29] MEDS: MIDODRINE HCL 5MG TABLET PO SCH ×3 (10:08→17:00)
[2018-07-29] MEDS: CLONIDINE 0.2MG TABLET PO PRN (21:08)
[2018-07-29 21:59] LABS: BG BASE EXCESS 0.5 mmol/L (-2.0-2.0); BG CARBOXYHEMOGLOBIN 0.6 % (0.5-1.5); BG DEOXYHEMOGLOBIN 8.3 % (0.0-5.0); BG FRACTION INSPIRED OXYGEN 32; BG HCO3 ACT 26.1 mmol/L (22.0-26.0); BG METHEMOGLOBIN 0.2 % (0.0-1.5); BG OXYGEN SATURATION 91.6 % (92.0-98.5); BG OXYHEMOGLOBIN 90.9 % (94.0-97.0); BG PH 7.371 (7.350-7.450); BG PO2 63.6 mmHg (75.0-100.0); BG SAMPLE SITE LEFT BRACHIAL; BG TOTAL HEMOGLOBIN 10.2 g/dL (12.0-18.0); BG VENT MODE NASAL CANNULA
[2018-07-29] MEDS ORDERED: ETOMIDATE 2MG/ML 10ML VIAL IV ONE (23:17)
[2018-07-29] MEDS ORDERED: SUCCINYLCHOLINE CHLORIDE 200MG/10ML IV ONE (23:17)
[2018-07-29 23:33] LABS: BG BASE EXCESS 0.7 mmol/L (-2.0-2.0); BG CARBOXYHEMOGLOBIN 0.3 % (0.5-1.5); BG DEOXYHEMOGLOBIN 0.9 % (0.0-5.0); BG FRACTION INSPIRED OXYGEN 80; BG METHEMOGLOBIN 0.2 % (0.0-1.5); BG OXYGEN SATURATION 99.1 % (92.0-98.5); BG OXYHEMOGLOBIN 98.6 % (94.0-97.0); BG PCO2 44.4 mmHg (35.0-45.0); BG PH 7.385 (7.350-7.450); BG PO2 189.6 mmHg (75.0-100.0); BG SAMPLE SITE RIGHT RADIAL; BG TIDAL VOLUME(mL) 400 mL; BG VENT MODE VENT - A/C; BG VENT RATE 14 set
[2018-07-29 23:35] LABS: HEMATOCRIT. 31.6 % (36.0-48.0); HEMOGLOBIN. 10.1 g/dL (12.0-16.0); MEAN CORPUSCULAR HEMOGLOBIN 29.5 pg (28.0-32.0); MEAN CORPUSCULAR VOLUME 92.5 fL (81.0-99.0); RED BLOOD CELL COUNT 3.42 mill/uL (4.2-5.4); RED CELL DISTRIBUTION WIDTH 15.8 % (11.6-14.6)
[2018-07-30] VITALS (94 sets, daily range): BP systolic 109–200; BP diastolic 45–105
[2018-07-30] MEDS ORDERED: PROPOFOL 10MG/ML 100ML 100 ML IV PRN (00:15)
[2018-07-30] MEDS: METOCLOPRAMIDE HCL 10MG/2ML VIAL IV SCH ×5 (00:22→23:53)
[2018-07-30] MEDS: SUCRALFATE 1 G/10 ML UDC GT SCH ×5 (00:22→23:52)
[2018-07-30] MEDS: BLOOD SUGAR DIAGNOSTIC STRIP TEST SCH ×5 (00:22→23:53)
[2018-07-30] MEDS: INSULIN LISPRO 100 UNITS/ML SUBCUT SCH ×5 (00:23→23:54)
[2018-07-30] MEDS: SODIUM CHLORIDE 0.9% 1,000 ML IV SCH ×2 (00:32→17:00)
[2018-07-30 00:42] LABS: CHLORIDE 110 mEq/L (98-107)
[2018-07-30 00:54] LABS: MEAN PLATELET VOLUME 8.4 fl (7.4-10.4); PLATELET 387 x1000/uL (130-400)
[2018-07-30] MEDS: ACETYLCYSTEINE 100MG/ML 10% VIAL 4ML INH SCH ×3 (01:47→16:12)
[2018-07-30] MEDS: IPRATROPIUM BROMIDE (0.02%) 0.5MG/2.5ML NEB HHN SCH ×6 (01:48→20:26)
[2018-07-30 02:14] LABS: PLATELET ESTIMATE NORMAL
[2018-07-30] MEDS: CLONIDINE 0.2MG TABLET PO PRN (03:07)
[2018-07-30] MEDS ORDERED: SODIUM POLYSTYRENE SULFONATE 15 G/60 ML BOT PO NR (06:00)
[2018-07-30] MEDS ORDERED: SODIUM POLYSTYRENE SULFONATE 15 G/60 ML BOT PO ONE (06:00)
[2018-07-30 06:20] LABS: HEMATOCRIT. 24.1 % (36.0-48.0); HEMOGLOBIN. 8.1 g/dL (12.0-16.0); MEAN CORPUSCULAR HEMOGLOBIN 30.3 pg (28.0-32.0); MEAN CORPUSCULAR VOLUME 90.5 fL (81.0-99.0); PLATELET 337 x1000/uL (130-400); RED BLOOD CELL COUNT 2.66 mill/uL (4.2-5.4); RED CELL DISTRIBUTION WIDTH 15.3 % (11.6-14.6)
[2018-07-30 06:42] LABS: CHLORIDE 109 mEq/L (98-107)
[2018-07-30 07:12] LABS: PLATELET ESTIMATE NORMAL
[2018-07-30] MEDS ORDERED: POTASSIUM CHLORIDE 10MEQ TABLET SR PO ONE (08:30)
[2018-07-30] MEDS ORDERED: FUROSEMIDE 40MG/4ML VIAL IVP NR (08:30)
[2018-07-30] MEDS ORDERED: PREDNISONE 20MG TABLET PO SCH (09:00)
[2018-07-30] MEDS: ASCORBIC ACID 500 MG TABLET NG SCH (09:00)
[2018-07-30] MEDS: PANTOPRAZOLE SODIUM 40 MG/VIAL IV SCH ×2 (10:21→20:40)
[2018-07-30] MEDS: ZINC SULFATE 220 MG ( 50 ) CAPSULE NG SCH (10:21)
[2018-07-30] MEDS: MULTIVITAMINS,THER W-MINERALS TABLET NG SCH (10:22)
[2018-07-30] MEDS: MIDODRINE HCL 5MG TABLET PO SCH ×3 (10:22→19:22)
[2018-07-30] MEDS: AMIODARONE HCL 200 MG TABLET PO SCH ×2 (10:22→20:40)
[2018-07-30] MEDS: CEFTRIAXONE 1,000 MG in DEXTROSE 5% WATER 50 ML IV SCH (11:37)
[2018-07-30 13:54] LABS: BG BASE EXCESS 0.7 mmol/L (-2.0-2.0); BG CARBOXYHEMOGLOBIN 0.2 % (0.5-1.5); BG CPAP (cmH2O) 0 cm(H2O); BG DEOXYHEMOGLOBIN 2.7 % (0.0-5.0); BG HCO3 ACT 26.8 mmol/L (22.0-26.0); BG METHEMOGLOBIN 0.3 % (0.0-1.5); BG OXYGEN SATURATION 97.3 % (92.0-98.5); BG OXYHEMOGLOBIN 96.8 % (94.0-97.0); BG PCO2 50.3 mmHg (35.0-45.0); BG PH 7.345 (7.350-7.450); BG PO2 103.5 mmHg (75.0-100.0); BG SAMPLE SITE RIGHT RADIAL; BG TOTAL HEMOGLOBIN 10.7 g/dL (12.0-18.0); BG VENT MODE VENT - CPAP
[2018-07-30] MEDS: SODIUM HYPOCHLORITE 0.125% 473ML SOLUTION TOP SCH (16:00)
[2018-07-31] VITALS (94 sets, daily range): BP systolic 107–160; BP diastolic 47–88
[2018-07-31] MEDS: ACETYLCYSTEINE 100MG/ML 10% VIAL 4ML INH SCH ×3 (00:27→15:50)
[2018-07-31] MEDS: IPRATROPIUM BROMIDE (0.02%) 0.5MG/2.5ML NEB HHN SCH ×5 (00:27→20:00)
[2018-07-31 05:33] LABS: HEMATOCRIT. 28.2 % (36.0-48.0); HEMOGLOBIN. 9.3 g/dL (12.0-16.0); MEAN CORPUSCULAR HEMOGLOBIN 30.2 pg (28.0-32.0); MEAN CORPUSCULAR VOLUME 91.9 fL (81.0-99.0); PLATELET 442 x1000/uL (130-400); RED BLOOD CELL COUNT 3.07 mill/uL (4.2-5.4); RED CELL DISTRIBUTION WIDTH 15.8 % (11.6-14.6)
[2018-07-31 05:40] LABS: CHLORIDE 109 mEq/L (98-107)
[2018-07-31] MEDS: SUCRALFATE 1 G/10 ML UDC GT SCH ×4 (05:41→23:55)
[2018-07-31] MEDS: METOCLOPRAMIDE HCL 10MG/2ML VIAL IV SCH ×4 (05:41→23:55)
[2018-07-31] MEDS: INSULIN LISPRO 100 UNITS/ML SUBCUT SCH ×4 (05:41→23:56)
[2018-07-31] MEDS: BLOOD SUGAR DIAGNOSTIC STRIP TEST SCH ×4 (05:42→23:56)
[2018-07-31 06:07] LABS: DIGOXIN 1.5 ng/mL (0.9-2.0)
[2018-07-31] MEDS: MIDODRINE HCL 5MG TABLET PO SCH ×3 (09:43→17:06)
[2018-07-31] MEDS: PANTOPRAZOLE SODIUM 40 MG/VIAL IV SCH ×2 (09:43→20:39)
[2018-07-31] MEDS: MULTIVITAMINS,THER W-MINERALS TABLET NG SCH (09:44)
[2018-07-31] MEDS: AMIODARONE HCL 200 MG TABLET PO SCH ×2 (09:44→20:39)
[2018-07-31] MEDS: ZINC SULFATE 220 MG ( 50 ) CAPSULE NG SCH (09:44)
[2018-07-31 09:45] LABS: BG BASE EXCESS 3.5 mmol/L (-2.0-2.0); BG CARBOXYHEMOGLOBIN 0.1 % (0.5-1.5); BG DEOXYHEMOGLOBIN 3.5 % (0.0-5.0); BG FRACTION INSPIRED OXYGEN 60; BG HCO3 ACT 29.2 mmol/L (22.0-26.0); BG METHEMOGLOBIN 0.2 % (0.0-1.5); BG OXYGEN SATURATION 96.5 % (92.0-98.5); BG OXYHEMOGLOBIN 96.2 % (94.0-97.0); BG PCO2 50.3 mmHg (35.0-45.0); BG PH 7.382 (7.350-7.450); BG PO2 89.1 mmHg (75.0-100.0); BG PRESSURE SUPPORT 8; BG SAMPLE SITE RIGHT RADIAL; BG TOTAL HEMOGLOBIN 9.5 g/dL (12.0-18.0); BG VENT MODE VENT - CPAP
[2018-07-31] MEDS: ASCORBIC ACID 500 MG TABLET NG SCH (09:46)
[2018-07-31] MEDS: CEFTRIAXONE 1,000 MG in DEXTROSE 5% WATER 50 ML IV SCH (12:28)
[2018-07-31 15:06] LABS: PLATELET ESTIMATE INCREASED
[2018-07-31] MEDS: IPRATROPIUM/ALBUTEROL 0.5-3(2.5)MG/3ML NEB INH PRN ×2 (15:56→20:46)
[2018-07-31] MEDS: DIGOXIN 125MCG TABLET PO SCH (17:05)
[2018-07-31] MEDS: SODIUM CHLORIDE 0.9% 1,000 ML IV SCH (21:59)
[2018-08-01] VITALS (78 sets, daily range): BP systolic 54–145; BP diastolic 40–93
[2018-08-01] MEDS: IPRATROPIUM/ALBUTEROL 0.5-3(2.5)MG/3ML NEB INH PRN ×3 (00:18→11:53)
[2018-08-01 05:33] LABS: HEMATOCRIT. 25.5 % (36.0-48.0); HEMOGLOBIN. 8.3 g/dL (12.0-16.0); MEAN CORPUSCULAR HEMOGLOBIN 29.7 pg (28.0-32.0); MEAN CORPUSCULAR VOLUME 91.7 fL (81.0-99.0); MEAN PLATELET VOLUME 8.4 fl (7.4-10.4); PLATELET 357 x1000/uL (130-400); RED BLOOD CELL COUNT 2.78 mill/uL (4.2-5.4); RED CELL DISTRIBUTION WIDTH 15.7 % (11.6-14.6)
[2018-08-01 05:35] LABS: CHLORIDE 111 mEq/L (98-107)
[2018-08-01] MEDS: INSULIN LISPRO 100 UNITS/ML SUBCUT SCH ×3 (06:00→18:00)
[2018-08-01] MEDS: SUCRALFATE 1 G/10 ML UDC GT SCH ×3 (06:07→18:09)
[2018-08-01] MEDS: BLOOD SUGAR DIAGNOSTIC STRIP TEST SCH ×3 (06:07→18:07)
[2018-08-01] MEDS: METOCLOPRAMIDE HCL 10MG/2ML VIAL IV SCH ×3 (06:07→18:09)
[2018-08-01 07:56] LABS: BG BASE EXCESS 1.5 mmol/L (-2.0-2.0); BG CARBOXYHEMOGLOBIN 0.2 % (0.5-1.5); BG DEOXYHEMOGLOBIN 1.1 % (0.0-5.0); BG FRACTION INSPIRED OXYGEN 60; BG HCO3 ACT 27.3 mmol/L (22.0-26.0); BG METHEMOGLOBIN 0.4 % (0.0-1.5); BG OXYGEN SATURATION 98.9 % (92.0-98.5); BG OXYHEMOGLOBIN 98.3 % (94.0-97.0); BG PCO2 49.6 mmHg (35.0-45.0); BG PH 7.359 (7.350-7.450); BG PO2 172.7 mmHg (75.0-100.0); BG PRESSURE SUPPORT 8; BG SAMPLE SITE RIGHT RADIAL; BG TIDAL VOLUME(mL) 400 mL; BG TOTAL HEMOGLOBIN 8.8 g/dL (12.0-18.0); BG VENT MODE VENT - SIMV; BG VENT RATE 10 set
[2018-08-01 08:01] LABS: PLATELET ESTIMATE NORMAL
[2018-08-01] MEDS: MULTIVITAMINS,THER W-MINERALS TABLET NG SCH (08:13)
[2018-08-01] MEDS: AMIODARONE HCL 200 MG TABLET PO SCH ×2 (08:13→21:18)
[2018-08-01] MEDS: PANTOPRAZOLE SODIUM 40 MG/VIAL IV SCH ×2 (08:13→21:18)
[2018-08-01] MEDS: ZINC SULFATE 220 MG ( 50 ) CAPSULE NG SCH (08:14)
[2018-08-01] MEDS: ASCORBIC ACID 500 MG TABLET NG SCH (08:14)
[2018-08-01] MEDS: MIDODRINE HCL 5MG TABLET PO SCH ×3 (08:14→18:09)
[2018-08-01] MEDS: IPRATROPIUM BROMIDE (0.02%) 0.5MG/2.5ML NEB HHN SCH ×3 (08:14→23:59)
[2018-08-01] MEDS: ACETYLCYSTEINE 100MG/ML 10% VIAL 4ML INH SCH (08:15)
[2018-08-01] MEDS: CEFTRIAXONE 1,000 MG in DEXTROSE 5% WATER 50 ML IV SCH (11:27)
[2018-08-01] MEDS: SODIUM HYPOCHLORITE 0.125% 473ML SOLUTION TOP SCH (14:06)
[2018-08-01 15:19] LABS: BG BASE EXCESS -5.4 mmol/L (-2.0-2.0); BG CARBOXYHEMOGLOBIN 0.3 % (0.5-1.5); BG DEOXYHEMOGLOBIN 9.3 % (0.0-5.0); BG FRACTION INSPIRED OXYGEN 40; BG HCO3 ACT 21.7 mmol/L (22.0-26.0); BG METHEMOGLOBIN 0.2 % (0.0-1.5); BG OXYGEN SATURATION 90.7 % (92.0-98.5); BG OXYHEMOGLOBIN 90.2 % (94.0-97.0); BG PCO2 49.7 mmHg (35.0-45.0); BG PH 7.257 (7.350-7.450); BG PO2 68.1 mmHg (75.0-100.0); BG PRESSURE SUPPORT 8; BG SAMPLE SITE RIGHT BRACHIAL; BG TOTAL HEMOGLOBIN 9.5 g/dL (12.0-18.0); BG VENT MODE VENT - CPAP
[2018-08-01] MEDS ORDERED: MIDODRINE HCL 5MG TABLET PO SCH (17:00)
[2018-08-02] VITALS (47 sets, daily range): BP systolic 115–149; BP diastolic 53–71
[2018-08-02] MEDS: SUCRALFATE 1 G/10 ML UDC GT SCH ×5 (00:40→23:59)
[2018-08-02] MEDS: METOCLOPRAMIDE HCL 10MG/2ML VIAL IV SCH ×5 (00:40→23:59)
[2018-08-02] MEDS: IPRATROPIUM BROMIDE (0.02%) 0.5MG/2.5ML NEB HHN SCH ×6 (04:15→20:15)
[2018-08-02 05:26] LABS: CHLORIDE 110 mEq/L (98-107)
[2018-08-02 05:27] LABS: HEMATOCRIT. 25.3 % (36.0-48.0); HEMOGLOBIN. 8.2 g/dL (12.0-16.0); MEAN CORPUSCULAR VOLUME 92.9 fL (81.0-99.0); MEAN PLATELET VOLUME 8.3 fl (7.4-10.4); PLATELET 344 x1000/uL (130-400); RED BLOOD CELL COUNT 2.72 mill/uL (4.2-5.4)
[2018-08-02 05:31] LABS: PHOSPHORUS 2.4 mg/dL (2.5-4.9)
[2018-08-02] MEDS: INSULIN LISPRO 100 UNITS/ML SUBCUT SCH ×5 (05:45→23:59)
[2018-08-02] MEDS: BLOOD SUGAR DIAGNOSTIC STRIP TEST SCH ×5 (05:45→23:59)
[2018-08-02] MEDS: METRONIDAZOLE 500 MG PREMIX 100 ML IV SCH ×3 (06:17→21:10)
[2018-08-02 07:04] LABS: PLATELET ESTIMATE NORMAL
[2018-08-02] MEDS ORDERED: POTASSIUM PHOS,M-BASIC-D-BASIC 10 MMOL in DEXT 5% WATER 246.6667 ML IV ONE (07:30)
[2018-08-02 07:53] LABS: BG BASE EXCESS 2.6 mmol/L (-2.0-2.0); BG CARBOXYHEMOGLOBIN 0.2 % (0.5-1.5); BG DEOXYHEMOGLOBIN 1.3 % (0.0-5.0); BG HCO3 ACT 27.9 mmol/L (22.0-26.0); BG METHEMOGLOBIN 0.1 % (0.0-1.5); BG OXYGEN SATURATION 98.7 % (92.0-98.5); BG OXYHEMOGLOBIN 98.4 % (94.0-97.0); BG PH 7.392 (7.350-7.450); BG PO2 136.4 mmHg (75.0-100.0); BG SAMPLE SITE RIGHT RADIAL; BG TIDAL VOLUME(mL) 400 mL; BG TOTAL HEMOGLOBIN 8.7 g/dL (12.0-18.0); BG VENT MODE VENT - SIMV; BG VENT RATE 10 set
[2018-08-02] MEDS: PANTOPRAZOLE SODIUM 40 MG/VIAL IV SCH ×2 (09:27→21:10)
[2018-08-02] MEDS: ZINC SULFATE 220 MG ( 50 ) CAPSULE NG SCH (09:27)
[2018-08-02] MEDS: MIDODRINE HCL 5MG TABLET PO SCH ×3 (09:27→17:00)
[2018-08-02] MEDS: ASCORBIC ACID 500 MG TABLET NG SCH (09:27)
[2018-08-02] MEDS: AMIODARONE HCL 200 MG TABLET PO SCH ×2 (09:28→21:10)
[2018-08-02] MEDS: MULTIVITAMINS,THER W-MINERALS TABLET NG SCH (09:28)
[2018-08-02] MEDS: CEFTRIAXONE 1,000 MG in DEXTROSE 5% WATER 50 ML IV SCH (11:40)
[2018-08-02] MEDS: DEXTROSE 50% WATER 50ML SYRINGE IV PRN (18:45)
[2018-08-02] MEDS: DIGOXIN 125MCG TABLET PO SCH (18:53)
[2018-08-03] VITALS (49 sets, daily range): BP systolic 119–169; BP diastolic 55–80
[2018-08-03] MEDS ORDERED: DEXTROSE 5% WATER 1,000 ML IV SCH
[2018-08-03] MEDS: IPRATROPIUM BROMIDE (0.02%) 0.5MG/2.5ML NEB HHN SCH ×4 (01:07→20:14)
[2018-08-03] MEDS: INSULIN LISPRO 100 UNITS/ML SUBCUT SCH ×3 (06:00→18:00)
[2018-08-03] MEDS: BLOOD SUGAR DIAGNOSTIC STRIP TEST SCH ×3 (06:29→18:04)
[2018-08-03] MEDS: METRONIDAZOLE 500 MG PREMIX 100 ML IV SCH ×3 (06:37→21:15)
[2018-08-03] MEDS: SUCRALFATE 1 G/10 ML UDC GT SCH ×2 (06:38→18:03)
[2018-08-03] MEDS: DEXTROSE 50% WATER 50ML SYRINGE IV PRN ×2 (06:38→18:06)
[2018-08-03] MEDS: METOCLOPRAMIDE HCL 10MG/2ML VIAL IV SCH ×3 (06:38→18:02)
[2018-08-03 07:23] LABS: INR 1.1
[2018-08-03 07:40] LABS: CHLORIDE 105 mEq/L (98-107)
[2018-08-03 07:49] LABS: BASOPHILS % 0.2 % (0.0-2.0); EOSINOPHILS % 0.8 % (0.0-5.0); HEMATOCRIT. 26.1 % (36.0-48.0); HEMOGLOBIN. 8.4 g/dL (12.0-16.0); LYMPHOCYTES % 8.3 % (20.0-50.0); MEAN PLATELET VOLUME 8.8 fl (7.4-10.4); MONOCYTES % 2.8 % (2.0-8.0); NEUTROPHILS % 87.9 % (40.0-76.0); PLATELET 342 x1000/uL (130-400); RED BLOOD CELL COUNT 2.81 mill/uL (4.2-5.4); RED CELL DISTRIBUTION WIDTH 15.8 % (11.6-14.6)
[2018-08-03 07:58] LABS: PHOSPHORUS 1.9 mg/dL (2.5-4.9)
[2018-08-03] MEDS: DEXT 10% WATER 1,000 ML IV SCH (08:46)
[2018-08-03] MEDS: MULTIVITAMINS,THER W-MINERALS TABLET NG SCH (09:00)
[2018-08-03] MEDS: ASCORBIC ACID 500 MG TABLET NG SCH (09:00)
[2018-08-03] MEDS: ZINC SULFATE 220 MG ( 50 ) CAPSULE NG SCH (09:00)
[2018-08-03] MEDS: MIDODRINE HCL 5MG TABLET PO SCH ×2 (09:00→18:03)
[2018-08-03] MEDS: AMIODARONE HCL 200 MG TABLET PO SCH ×2 (09:02→21:15)
[2018-08-03] MEDS: PANTOPRAZOLE SODIUM 40 MG/VIAL IV SCH ×2 (11:12→21:15)
[2018-08-03] MEDS: CEFTRIAXONE 1,000 MG in DEXTROSE 5% WATER 50 ML IV SCH (12:01)
[2018-08-03] MEDS ORDERED: ROCURONIUM BROMIDE 10MG/ML VIAL 5ML IV ONE (13:01)
[2018-08-03] MEDS ORDERED: MIDAZOLAM HCL 2 MG/2 ML VIAL ONE (13:01)
[2018-08-03] MEDS ORDERED: LIDOCAINE HCL/EPINEPHRINE 1%-EPI 1:100,000 20 ML VIAL ONE (13:07)
[2018-08-03] MEDS ORDERED: PHENYLEPHRINE HCL 10 MG/ML 1ML (IV VIAL) IV ONE (13:30)
[2018-08-03] MEDS: SODIUM HYPOCHLORITE 0.125% 473ML SOLUTION TOP SCH (18:06)
[2018-08-03] MEDS: IPRATROPIUM/ALBUTEROL 0.5-3(2.5)MG/3ML NEB INH PRN (23:59)
[2018-08-04] VITALS (41 sets, daily range): BP systolic 120–170; BP diastolic 48–110
[2018-08-04] MEDS: IPRATROPIUM BROMIDE (0.02%) 0.5MG/2.5ML NEB HHN SCH ×6 (00:02→20:21)
[2018-08-04] MEDS: SUCRALFATE 1 G/10 ML UDC GT SCH ×4 (00:04→17:53)
[2018-08-04] MEDS: METOCLOPRAMIDE HCL 10MG/2ML VIAL IV SCH ×4 (00:04→17:53)
[2018-08-04] MEDS: BLOOD SUGAR DIAGNOSTIC STRIP TEST SCH ×4 (00:04→18:00)
[2018-08-04] MEDS: DEXTROSE 50% WATER 50ML SYRINGE IV PRN (00:04)
[2018-08-04] MEDS: DEXT 10% WATER 1,000 ML IV SCH (04:57)
[2018-08-04] MEDS: INSULIN LISPRO 100 UNITS/ML SUBCUT SCH ×4 (06:00→18:00)
[2018-08-04] MEDS: METRONIDAZOLE 500 MG PREMIX 100 ML IV SCH ×3 (06:08→21:42)
[2018-08-04 06:23] LABS: HEMATOCRIT. 26.2 % (36.0-48.0); HEMOGLOBIN. 8.5 g/dL (12.0-16.0); MEAN CORPUSCULAR HEMOGLOBIN 29.7 pg (28.0-32.0); MEAN PLATELET VOLUME 8.9 fl (7.4-10.4); PLATELET 332 x1000/uL (130-400); RED BLOOD CELL COUNT 2.88 mill/uL (4.2-5.4); RED CELL DISTRIBUTION WIDTH 15.6 % (11.6-14.6)
[2018-08-04 06:36] LABS: CHLORIDE 104 mEq/L (98-107)
[2018-08-04 07:52] LABS: PLATELET ESTIMATE NORMAL
[2018-08-04] MEDS: MULTIVITAMINS,THER W-MINERALS TABLET NG SCH (10:03)
[2018-08-04] MEDS: MIDODRINE HCL 5MG TABLET PO SCH ×3 (10:03→17:57)
[2018-08-04] MEDS: ZINC SULFATE 220 MG ( 50 ) CAPSULE NG SCH (10:03)
[2018-08-04] MEDS: ASCORBIC ACID 500 MG TABLET NG SCH (10:03)
[2018-08-04] MEDS: PANTOPRAZOLE SODIUM 40 MG/VIAL IV SCH ×2 (10:03→21:41)
[2018-08-04] MEDS: AMIODARONE HCL 200 MG TABLET PO SCH ×2 (10:03→21:42)
[2018-08-04] MEDS: CEFTRIAXONE 1,000 MG in DEXTROSE 5% WATER 50 ML IV SCH (12:09)
[2018-08-04] MEDS: DIGOXIN 125MCG TABLET PO SCH (17:53)
[2018-08-05] VITALS (37 sets, daily range): BP systolic 118–160; BP diastolic 51–72
[2018-08-05] MEDS: IPRATROPIUM BROMIDE (0.02%) 0.5MG/2.5ML NEB HHN SCH ×6 (00:06→20:39)
[2018-08-05] MEDS: SUCRALFATE 1 G/10 ML UDC GT SCH ×5 (00:30→23:48)
[2018-08-05] MEDS: METOCLOPRAMIDE HCL 10MG/2ML VIAL IV SCH ×5 (00:31→23:48)
[2018-08-05] MEDS: BLOOD SUGAR DIAGNOSTIC STRIP TEST SCH ×5 (00:52→23:49)
[2018-08-05 05:54] LABS: CHLORIDE 104 mEq/L (98-107)
[2018-08-05 05:59] LABS: BASOPHILS % 0.3 % (0.0-2.0); EOSINOPHILS % 0.6 % (0.0-5.0); HEMATOCRIT. 24.5 % (36.0-48.0); HEMOGLOBIN. 8.2 g/dL (12.0-16.0); LYMPHOCYTES % 8.1 % (20.0-50.0); MEAN CORPUSCULAR HEMOGLOBIN 30.4 pg (28.0-32.0); MEAN CORPUSCULAR VOLUME 91.3 fL (81.0-99.0); MEAN PLATELET VOLUME 8.8 fl (7.4-10.4); MONOCYTES % 3.1 % (2.0-8.0); NEUTROPHILS % 87.9 % (40.0-76.0); PLATELET 308 x1000/uL (130-400); RED BLOOD CELL COUNT 2.69 mill/uL (4.2-5.4); RED CELL DISTRIBUTION WIDTH 16.2 % (11.6-14.6)
[2018-08-05] MEDS: METRONIDAZOLE 500 MG PREMIX 100 ML IV SCH ×3 (06:00→21:07)
[2018-08-05] MEDS: INSULIN LISPRO 100 UNITS/ML SUBCUT SCH ×5 (06:00→23:49)
[2018-08-05 07:31] LABS: BG BASE EXCESS 4.3 mmol/L (-2.0-2.0); BG DEOXYHEMOGLOBIN 3.6 % (0.0-5.0); BG HCO3 ACT 27.5 mmol/L (22.0-26.0); BG METHEMOGLOBIN 0.3 % (0.0-1.5); BG OXYGEN SATURATION 96.4 % (92.0-98.5); BG OXYHEMOGLOBIN 96.1 % (94.0-97.0); BG PCO2 35.4 mmHg (35.0-45.0); BG PH 7.508 (7.350-7.450); BG SAMPLE SITE RIGHT BRACHIAL; BG TIDAL VOLUME(mL) 450 mL; BG TOTAL HEMOGLOBIN 9.1 g/dL (12.0-18.0); BG VENT MODE VENT - A/C; BG VENT RATE 14 set
[2018-08-05] MEDS: PANTOPRAZOLE SODIUM 40 MG/VIAL IV SCH ×2 (09:27→21:07)
[2018-08-05] MEDS: AMIODARONE HCL 200 MG TABLET PO SCH ×2 (09:27→21:07)
[2018-08-05] MEDS: ZINC SULFATE 220 MG ( 50 ) CAPSULE NG SCH (09:27)
[2018-08-05] MEDS: ASCORBIC ACID 500 MG TABLET NG SCH (09:27)
[2018-08-05] MEDS: MIDODRINE HCL 5MG TABLET PO SCH ×3 (09:27→17:48)
[2018-08-05] MEDS: MULTIVITAMINS,THER W-MINERALS TABLET NG SCH (09:27)
[2018-08-05] MEDS ORDERED: POTASSIUM CHLORIDE 20MEQ/PACKET PEG NR (11:15)
[2018-08-05] MEDS: CEFTRIAXONE 1,000 MG in DEXTROSE 5% WATER 50 ML IV SCH (14:15)
[2018-08-05] MEDS: VANCOMYCIN HCL 1000 MG/20 ML ORAL PO SCH ×3 (14:29→23:49)
[2018-08-05] MEDS ORDERED: SODIUM CHLORIDE 0.9% 1,000 ML IV ONE (14:45)
[2018-08-05] MEDS ORDERED: ACETAZOLAMIDE SODIUM 500MG/VIAL IV NR (15:00)
[2018-08-05] MEDS: SODIUM HYPOCHLORITE 0.125% 473ML SOLUTION TOP SCH (17:47)
[2018-08-05] MEDS: MICONAZOLE NITRATE 2% OINT 71GM TOP SCH (21:07)
[2018-08-05] MEDS: DEXT 10% WATER 1,000 ML IV SCH (21:07)
[2018-08-06] VITALS (18 sets, daily range): BP systolic 107–151; BP diastolic 50–74
[2018-08-06] MEDS: IPRATROPIUM BROMIDE (0.02%) 0.5MG/2.5ML NEB HHN SCH ×5 (00:11→20:39)
[2018-08-06] MEDS: VANCOMYCIN HCL 1000 MG/20 ML ORAL PO SCH ×3 (05:55→17:32)
[2018-08-06] MEDS: BLOOD SUGAR DIAGNOSTIC STRIP TEST SCH ×4 (05:55→23:58)
[2018-08-06] MEDS: METRONIDAZOLE 500 MG PREMIX 100 ML IV SCH ×3 (05:55→21:37)
[2018-08-06] MEDS: SUCRALFATE 1 G/10 ML UDC GT SCH ×4 (05:55→23:42)
[2018-08-06] MEDS: INSULIN LISPRO 100 UNITS/ML SUBCUT SCH ×4 (05:55→23:58)
[2018-08-06] MEDS: METOCLOPRAMIDE HCL 10MG/2ML VIAL IV SCH ×2 (05:55→13:01)
[2018-08-06 06:04] LABS: PHOSPHORUS 1.6 mg/dL (2.5-4.9)
[2018-08-06] MEDS ORDERED: MAGNESIUM 2 G PREMIX 50 ML IV SCH (09:00)
[2018-08-06] MEDS ORDERED: SODIUM PHOS,M-BASIC-D-BASIC 15 MM in DEXT 5% WATER 245 ML IV SCH (09:00)
[2018-08-06] MEDS: PANTOPRAZOLE SODIUM 40 MG/VIAL IV SCH ×2 (09:29→20:17)
[2018-08-06] MEDS: ZINC SULFATE 220 MG ( 50 ) CAPSULE NG SCH (09:29)
[2018-08-06] MEDS: AMIODARONE HCL 200 MG TABLET PO SCH ×2 (09:29→20:21)
[2018-08-06] MEDS: MIDODRINE HCL 5MG TABLET PO SCH ×3 (09:29→17:32)
[2018-08-06] MEDS: MULTIVITAMINS,THER W-MINERALS TABLET NG SCH (09:29)
[2018-08-06] MEDS: ASCORBIC ACID 500 MG TABLET NG SCH (09:29)
[2018-08-06] MEDS: MICONAZOLE NITRATE 2% OINT 71GM TOP SCH ×2 (09:46→20:17)
[2018-08-06 10:18] LABS: BASOPHILS % 0.3 % (0.0-2.0); EOSINOPHILS % 1.4 % (0.0-5.0); HEMATOCRIT. 23.8 % (36.0-48.0); HEMOGLOBIN. 7.9 g/dL (12.0-16.0); LYMPHOCYTES % 7.6 % (20.0-50.0); MEAN CORPUSCULAR HEMOGLOBIN 30.3 pg (28.0-32.0); MEAN CORPUSCULAR VOLUME 91.8 fL (81.0-99.0); MEAN PLATELET VOLUME 8.8 fl (7.4-10.4); NEUTROPHILS % 87.7 % (40.0-76.0); PLATELET 275 x1000/uL (130-400); RED BLOOD CELL COUNT 2.59 mill/uL (4.2-5.4); RED CELL DISTRIBUTION WIDTH 16.1 % (11.6-14.6)
[2018-08-06 10:31] LABS: CHLORIDE 105 mEq/L (98-107)
[2018-08-06 11:25] LABS: BG BASE EXCESS 0.7 mmol/L (-2.0-2.0); BG CARBOXYHEMOGLOBIN 0.2 % (0.5-1.5); BG DEOXYHEMOGLOBIN 1.9 % (0.0-5.0); BG FRACTION INSPIRED OXYGEN 40; BG HCO3 ACT 24.3 mmol/L (22.0-26.0); BG METHEMOGLOBIN 0.1 % (0.0-1.5); BG OXYGEN SATURATION 98.1 % (92.0-98.5); BG OXYHEMOGLOBIN 97.8 % (94.0-97.0); BG PCO2 34.5 mmHg (35.0-45.0); BG PH 7.465 (7.350-7.450); BG PO2 106.3 mmHg (75.0-100.0); BG PRESSURE SUPPORT 10; BG SAMPLE SITE RIGHT RADIAL; BG TIDAL VOLUME(mL) 450 mL; BG TOTAL HEMOGLOBIN 8.7 g/dL (12.0-18.0); BG VENT MODE VENT - SIMV; BG VENT RATE 8 set
[2018-08-06] MEDS: DEXT 10% WATER 1,000 ML IV SCH ×2 (12:40→23:43)
[2018-08-06] MEDS: CEFTRIAXONE 1,000 MG in DEXTROSE 5% WATER 50 ML IV SCH (13:02)
[2018-08-06] MEDS: LACTOBACILLUS GG CAPSULE PO SCH (14:15)
[2018-08-06] MEDS: ENOXAPARIN 30MG/0.3ML SYR SUBCUT SCH (14:16)
[2018-08-06] MEDS: DIGOXIN 125MCG TABLET PO SCH (17:32)
[2018-08-07] VITALS (12 sets, daily range): BP systolic 107–146; BP diastolic 30–66
[2018-08-07] MEDS: VANCOMYCIN HCL 1000 MG/20 ML ORAL PO SCH ×4 (00:03→17:38)
[2018-08-07] MEDS: IPRATROPIUM BROMIDE (0.02%) 0.5MG/2.5ML NEB HHN SCH ×6 (00:25→21:36)
[2018-08-07] MEDS: METRONIDAZOLE 500 MG PREMIX 100 ML IV SCH ×3 (05:32→21:33)
[2018-08-07] MEDS: SUCRALFATE 1 G/10 ML UDC GT SCH ×3 (05:32→17:38)
[2018-08-07] MEDS: INSULIN LISPRO 100 UNITS/ML SUBCUT SCH ×3 (05:53→17:13)
[2018-08-07] MEDS: BLOOD SUGAR DIAGNOSTIC STRIP TEST SCH ×3 (05:53→17:13)
[2018-08-07 06:59] LABS: HEMATOCRIT. 26.5 % (36.0-48.0); HEMOGLOBIN. 8.6 g/dL (12.0-16.0); MEAN CORPUSCULAR HEMOGLOBIN 29.9 pg (28.0-32.0); MEAN CORPUSCULAR VOLUME 92.5 fL (81.0-99.0); PLATELET 317 x1000/uL (130-400); RED BLOOD CELL COUNT 2.86 mill/uL (4.2-5.4); RED CELL DISTRIBUTION WIDTH 16.5 % (11.6-14.6)
[2018-08-07 07:50] LABS: CHLORIDE 103 mEq/L (98-107)
[2018-08-07] MEDS: LACTOBACILLUS GG CAPSULE PO SCH (08:42)
[2018-08-07] MEDS: MIDODRINE HCL 5MG TABLET PO SCH ×3 (08:42→17:39)
[2018-08-07] MEDS: PANTOPRAZOLE SODIUM 40 MG/VIAL IV SCH ×2 (08:42→21:31)
[2018-08-07] MEDS: ZINC SULFATE 220 MG ( 50 ) CAPSULE NG SCH (08:42)
[2018-08-07] MEDS: ASCORBIC ACID 500 MG TABLET NG SCH (08:42)
[2018-08-07] MEDS: MULTIVITAMINS,THER W-MINERALS TABLET NG SCH (08:42)
[2018-08-07] MEDS: AMIODARONE HCL 200 MG TABLET PO SCH ×2 (08:42→21:32)
[2018-08-07] MEDS: MICONAZOLE NITRATE 2% OINT 71GM TOP SCH ×2 (08:43→22:04)
[2018-08-07] MEDS: ENOXAPARIN 30MG/0.3ML SYR SUBCUT SCH (13:26)
[2018-08-07] MEDS: SODIUM HYPOCHLORITE 0.125% 473ML SOLUTION TOP SCH ×2 (16:00→17:43)
[2018-08-07 19:39] LABS: PLATELET ESTIMATE NORMAL
[2018-08-08] VITALS (11 sets, daily range): BP systolic 107–158; BP diastolic 46–84
[2018-08-08] MEDS: VANCOMYCIN HCL 1000 MG/20 ML ORAL PO SCH ×4 (00:03→17:47)
[2018-08-08] MEDS: SUCRALFATE 1 G/10 ML UDC GT SCH ×4 (00:03→17:41)
[2018-08-08] MEDS: IPRATROPIUM BROMIDE (0.02%) 0.5MG/2.5ML NEB HHN SCH ×6 (00:59→20:38)
[2018-08-08] MEDS: BLOOD SUGAR DIAGNOSTIC STRIP TEST SCH ×4 (06:00→17:25)
[2018-08-08] MEDS: INSULIN LISPRO 100 UNITS/ML SUBCUT SCH ×4 (06:00→17:36)
[2018-08-08] MEDS: METRONIDAZOLE 500 MG PREMIX 100 ML IV SCH ×3 (06:02→22:37)
[2018-08-08 06:35] LABS: HEMATOCRIT. 23.1 % (36.0-48.0); HEMOGLOBIN. 7.5 g/dL (12.0-16.0); MEAN CORPUSCULAR HEMOGLOBIN 29.9 pg (28.0-32.0); MEAN CORPUSCULAR VOLUME 91.8 fL (81.0-99.0); MEAN PLATELET VOLUME 8.9 fl (7.4-10.4); PLATELET 275 x1000/uL (130-400); RED BLOOD CELL COUNT 2.51 mill/uL (4.2-5.4); RED CELL DISTRIBUTION WIDTH 16.3 % (11.6-14.6)
[2018-08-08 07:24] LABS: CHLORIDE 105 mEq/L (98-107)
[2018-08-08] MEDS: MULTIVITAMINS,THER W-MINERALS TABLET NG SCH (08:23)
[2018-08-08] MEDS: ZINC SULFATE 220 MG ( 50 ) CAPSULE NG SCH (08:24)
[2018-08-08] MEDS: LACTOBACILLUS GG CAPSULE PO SCH (08:24)
[2018-08-08] MEDS: PANTOPRAZOLE SODIUM 40 MG/VIAL IV SCH ×2 (08:24→20:14)
[2018-08-08] MEDS: ASCORBIC ACID 500 MG TABLET NG SCH (08:24)
[2018-08-08] MEDS: MICONAZOLE NITRATE 2% OINT 71GM TOP SCH ×2 (08:25→20:14)
[2018-08-08] MEDS: AMIODARONE HCL 200 MG TABLET PO SCH ×2 (08:25→20:16)
[2018-08-08] MEDS: MIDODRINE HCL 5MG TABLET PO SCH ×3 (09:00→17:00)
[2018-08-08 12:42] LABS: INR 1.3; PARTIAL THROMBOPLASTIN TIME 33.9 sec (23.4-31.0); PROTHROMBIN TIME 12.8 sec (9.1-11.1)
[2018-08-08 12:44] LABS: HEMATOCRIT 24.9 % (36.0-48.0)
[2018-08-08] MEDS: ENOXAPARIN 30MG/0.3ML SYR SUBCUT SCH (13:16)
[2018-08-08 14:24] LABS: PLATELET ESTIMATE NORMAL
[2018-08-08] MEDS: DIGOXIN 125MCG TABLET PO SCH (17:42)
[2018-08-09] VITALS (12 sets, daily range): BP systolic 112–149; BP diastolic 46–71
[2018-08-09] MEDS: VANCOMYCIN HCL 1000 MG/20 ML ORAL PO SCH ×4 (00:58→17:51)
[2018-08-09] MEDS: SUCRALFATE 1 G/10 ML UDC GT SCH ×4 (00:58→17:51)
[2018-08-09] MEDS: IPRATROPIUM BROMIDE (0.02%) 0.5MG/2.5ML NEB HHN SCH ×6 (02:01→20:38)
[2018-08-09] MEDS: INSULIN LISPRO 100 UNITS/ML SUBCUT SCH ×4 (06:00→17:19)
[2018-08-09] MEDS: BLOOD SUGAR DIAGNOSTIC STRIP TEST SCH ×4 (06:00→17:20)
[2018-08-09 06:42] LABS: BASOPHILS % 0.1 % (0.0-2.0); EOSINOPHILS % 0.5 % (0.0-5.0); HEMOGLOBIN. 7.9 g/dL (12.0-16.0); LYMPHOCYTES % 7.8 % (20.0-50.0); MEAN CORPUSCULAR HEMOGLOBIN 30.2 pg (28.0-32.0); MEAN CORPUSCULAR VOLUME 91.8 fL (81.0-99.0); MEAN PLATELET VOLUME 8.5 fl (7.4-10.4); MONOCYTES % 2.1 % (2.0-8.0); NEUTROPHILS % 89.5 % (40.0-76.0); PLATELET 293 x1000/uL (130-400); RED BLOOD CELL COUNT 2.62 mill/uL (4.2-5.4); RED CELL DISTRIBUTION WIDTH 16.1 % (11.6-14.6)
[2018-08-09 07:25] LABS: CHLORIDE 104 mEq/L (98-107)
[2018-08-09] MEDS: METRONIDAZOLE 500 MG PREMIX 100 ML IV SCH ×4 (08:00→21:43)
[2018-08-09] MEDS: MIDODRINE HCL 5MG TABLET PO SCH ×3 (08:12→17:51)
[2018-08-09] MEDS: MICONAZOLE NITRATE 2% OINT 71GM TOP SCH ×2 (08:13→21:38)
[2018-08-09] MEDS: MULTIVITAMINS,THER W-MINERALS TABLET NG SCH (08:24)
[2018-08-09] MEDS: ZINC SULFATE 220 MG ( 50 ) CAPSULE NG SCH (08:24)
[2018-08-09] MEDS: ASCORBIC ACID 500 MG TABLET NG SCH (08:24)
[2018-08-09] MEDS: PANTOPRAZOLE SODIUM 40 MG/VIAL IV SCH ×2 (08:24→21:37)
[2018-08-09] MEDS: LACTOBACILLUS GG CAPSULE PO SCH (08:24)
[2018-08-09] MEDS: AMIODARONE HCL 200 MG TABLET PO SCH ×2 (08:25→21:36)
[2018-08-09 10:32] LABS: FOLIC ACID (FOLATE) SERUM 13.7 ng/mL (>5.38)
[2018-08-09] MEDS: CLONIDINE 0.2MG TABLET PO PRN (21:37)
[2018-08-10] VITALS (12 sets, daily range): BP systolic 105–135; BP diastolic 50–84
[2018-08-10] MEDS: IPRATROPIUM BROMIDE (0.02%) 0.5MG/2.5ML NEB HHN SCH ×5 (00:21→20:20)
[2018-08-10] MEDS: BLOOD SUGAR DIAGNOSTIC STRIP TEST SCH ×4 (00:40→17:51)
[2018-08-10] MEDS: SUCRALFATE 1 G/10 ML UDC GT SCH ×4 (00:44→17:51)
[2018-08-10] MEDS: VANCOMYCIN HCL 1000 MG/20 ML ORAL PO SCH ×4 (00:46→17:51)
[2018-08-10] MEDS: INSULIN LISPRO 100 UNITS/ML SUBCUT SCH ×4 (06:00→17:51)
[2018-08-10] MEDS: METRONIDAZOLE 500 MG PREMIX 100 ML IV SCH ×3 (06:28→20:38)
[2018-08-10] MEDS: ZINC SULFATE 220 MG ( 50 ) CAPSULE NG SCH (08:57)
[2018-08-10] MEDS: AMIODARONE HCL 200 MG TABLET PO SCH ×2 (08:57→20:38)
[2018-08-10] MEDS: LACTOBACILLUS GG CAPSULE PO SCH (08:57)
[2018-08-10] MEDS: PANTOPRAZOLE SODIUM 40 MG/VIAL IV SCH ×2 (08:57→20:38)
[2018-08-10] MEDS: MIDODRINE HCL 5MG TABLET PO SCH ×3 (08:57→17:51)
[2018-08-10] MEDS: MULTIVITAMINS,THER W-MINERALS TABLET NG SCH (08:58)
[2018-08-10] MEDS: ASCORBIC ACID 500 MG TABLET NG SCH (08:58)
[2018-08-10] MEDS: MICONAZOLE NITRATE 2% OINT 71GM TOP SCH ×2 (08:58→20:38)
[2018-08-10 09:16] LABS: HEMATOCRIT. 23.3 % (36.0-48.0); HEMOGLOBIN. 7.5 g/dL (12.0-16.0); MEAN CORPUSCULAR HEMOGLOBIN 29.1 pg (28.0-32.0); MEAN CORPUSCULAR VOLUME 91.2 fL (81.0-99.0); PLATELET 320 x1000/uL (130-400); RED BLOOD CELL COUNT 2.56 mill/uL (4.2-5.4); RED CELL DISTRIBUTION WIDTH 15.9 % (11.6-14.6)
[2018-08-10 09:42] LABS: CHLORIDE 103 mEq/L (98-107)
[2018-08-10 12:49] LABS: PLATELET ESTIMATE NORMAL
[2018-08-10] MEDS: ENOXAPARIN 30MG/0.3ML SYR SUBCUT SCH (14:00)
[2018-08-10 17:01] LABS: CLARITY URINE TURBID (CLEAR); COLOR URINE DARK YELLOW (YELLOW); KETONES URINE NEGATIVE (NEGATIVE); LEUKOCYTE ESTERASE URINE 3+ (NEGATIVE); NITRITE URINE NEGATIVE (NEGATIVE); OCCULT BLOOD URINE 2+ (NEGATIVE); PH URINE 6.5 (4.5-8.0); PROTEIN URINE 1+ (NEGATIVE); SPECIFIC GRAVITY URINE 1.013 (1.005-1.030); UROBILINOGEN URINE 0.2 E.U./dL (0.2-1.0)
[2018-08-10] MEDS ORDERED: DIATR MEGLU/DIATRIZOATE SOLN 30ML ONE (20:06)
[2018-08-10] MEDS: ONDANSETRON HCL 4MG/2ML INJ IV PRN (22:05)
[2018-08-11] VITALS (12 sets, daily range): BP systolic 112–142; BP diastolic 50–63
[2018-08-11] MEDS: IPRATROPIUM BROMIDE (0.02%) 0.5MG/2.5ML NEB HHN SCH ×6 (00:13→20:22)
[2018-08-11] MEDS: SUCRALFATE 1 G/10 ML UDC GT SCH ×5 (01:43→23:18)
[2018-08-11] MEDS: VANCOMYCIN HCL 1000 MG/20 ML ORAL PO SCH ×5 (01:43→23:18)
[2018-08-11] MEDS: INSULIN LISPRO 100 UNITS/ML SUBCUT SCH ×5 (01:47→23:18)
[2018-08-11] MEDS: BLOOD SUGAR DIAGNOSTIC STRIP TEST SCH ×5 (05:22→23:18)
[2018-08-11] MEDS: METRONIDAZOLE 500 MG PREMIX 100 ML IV SCH (05:22)
[2018-08-11 06:32] LABS: BASOPHILS % 0.2 % (0.0-2.0); EOSINOPHILS % 0.4 % (0.0-5.0); HEMATOCRIT. 26.3 % (36.0-48.0); HEMOGLOBIN. 8.5 g/dL (12.0-16.0); LYMPHOCYTES % 8.1 % (20.0-50.0); MEAN CORPUSCULAR HEMOGLOBIN 29.9 pg (28.0-32.0); MONOCYTES % 3.8 % (2.0-8.0); NEUTROPHILS % 87.5 % (40.0-76.0); PLATELET 335 x1000/uL (130-400); RED BLOOD CELL COUNT 2.86 mill/uL (4.2-5.4); RED CELL DISTRIBUTION WIDTH 16.5 % (11.6-14.6)
[2018-08-11 06:57] LABS: CHLORIDE 104 mEq/L (98-107)
[2018-08-11] MEDS: PANTOPRAZOLE SODIUM 40 MG/VIAL IV SCH ×2 (09:07→20:23)
[2018-08-11] MEDS: AMIODARONE HCL 200 MG TABLET PO SCH ×2 (09:08→20:23)
[2018-08-11] MEDS: MIDODRINE HCL 5MG TABLET PO SCH ×3 (09:08→17:47)
[2018-08-11] MEDS: MULTIVITAMINS,THER W-MINERALS TABLET NG SCH (09:08)
[2018-08-11] MEDS: ZINC SULFATE 220 MG ( 50 ) CAPSULE NG SCH (09:08)
[2018-08-11] MEDS: LACTOBACILLUS GG CAPSULE PO SCH (09:08)
[2018-08-11] MEDS: MICONAZOLE NITRATE 2% OINT 71GM TOP SCH ×2 (09:08→20:24)
[2018-08-11] MEDS: ASCORBIC ACID 500 MG TABLET NG SCH (09:50)
[2018-08-11] MEDS ORDERED: LIDOCAINE HCL/EPINEPHRINE 1%-EPI 1:100,000 20 ML VIAL INFIL SCH (12:00)
[2018-08-11] MEDS: ENOXAPARIN 30MG/0.3ML SYR SUBCUT SCH (13:48)
[2018-08-12] VITALS (15 sets, daily range): BP systolic 101–127; BP diastolic 41–83
[2018-08-12] MEDS: IPRATROPIUM BROMIDE (0.02%) 0.5MG/2.5ML NEB HHN SCH ×7 (00:04→23:58)
[2018-08-12] MEDS: IPRATROPIUM/ALBUTEROL 0.5-3(2.5)MG/3ML NEB INH PRN (04:12)
[2018-08-12 04:14] LABS: OVA & PARASITE EXAM Final report (.)
[2018-08-12] MEDS: BLOOD SUGAR DIAGNOSTIC STRIP TEST SCH ×4 (05:12→23:35)
[2018-08-12] MEDS: INSULIN LISPRO 100 UNITS/ML SUBCUT SCH ×4 (05:12→23:35)
[2018-08-12] MEDS: VANCOMYCIN HCL 1000 MG/20 ML ORAL PO SCH ×4 (05:17→23:29)
[2018-08-12] MEDS: SUCRALFATE 1 G/10 ML UDC GT SCH ×4 (05:17→23:29)
[2018-08-12] MEDS ORDERED: *NO ASPIRIN X 24 HOURS XX ONE (05:30)
[2018-08-12] MEDS ORDERED: AMIKACIN SULFATE 250 MG in SODIUM CHLORIDE 0.9% 100 ML IV SCH ×2 (06:00→08:00)
[2018-08-12] MEDS: MICAFUNGIN 150 MG in SODIUM CHLORIDE 0.9% 100 ML IV SCH (06:13)
[2018-08-12] MEDS: MEROPENEM 500 MG in SODIUM CHLORIDE 0.9% 50 ML IV SCH ×2 (06:13→13:43)
[2018-08-12 06:57] LABS: BASOPHILS % 0.2 % (0.0-2.0); EOSINOPHILS % 0.7 % (0.0-5.0); HEMATOCRIT. 21.9 % (36.0-48.0); HEMOGLOBIN. 7.1 g/dL (12.0-16.0); LYMPHOCYTES % 8.1 % (20.0-50.0); MEAN CORPUSCULAR HEMOGLOBIN 29.3 pg (28.0-32.0); MONOCYTES % 2.9 % (2.0-8.0); NEUTROPHILS % 88.1 % (40.0-76.0); PLATELET 335 x1000/uL (130-400); RED BLOOD CELL COUNT 2.43 mill/uL (4.2-5.4); RED CELL DISTRIBUTION WIDTH 16.4 % (11.6-14.6)
[2018-08-12 07:09] LABS: CHLORIDE 103 mEq/L (98-107)
[2018-08-12] MEDS: ASCORBIC ACID 500 MG TABLET NG SCH (09:05)
[2018-08-12] MEDS: LACTOBACILLUS GG CAPSULE PO SCH (09:05)
[2018-08-12] MEDS: MIDODRINE HCL 5MG TABLET PO SCH ×3 (09:05→17:55)
[2018-08-12] MEDS: PANTOPRAZOLE SODIUM 40 MG/VIAL IV SCH ×2 (09:05→21:00)
[2018-08-12] MEDS: MULTIVITAMINS,THER W-MINERALS TABLET NG SCH (09:05)
[2018-08-12] MEDS: AMIODARONE HCL 200 MG TABLET PO SCH ×2 (09:05→21:45)
[2018-08-12] MEDS: ZINC SULFATE 220 MG ( 50 ) CAPSULE NG SCH (09:05)
[2018-08-12] MEDS: MICONAZOLE NITRATE 2% OINT 71GM TOP SCH ×2 (09:06→21:43)
[2018-08-12 22:07] LABS: HEMATOCRIT 23.3 % (36.0-48.0); HEMOGLOBIN 7.6 g/dL (12.0-16.0)
[2018-08-13] VITALS (16 sets, daily range): BP systolic 76–118; BP diastolic 34–98
[2018-08-13] MEDS: MEROPENEM 500 MG in SODIUM CHLORIDE 0.9% 50 ML IV SCH ×2 (02:00→16:05)
[2018-08-13] MEDS: IPRATROPIUM BROMIDE (0.02%) 0.5MG/2.5ML NEB HHN SCH ×5 (04:54→20:56)
[2018-08-13] MEDS: BLOOD SUGAR DIAGNOSTIC STRIP TEST SCH ×3 (05:05→17:42)
[2018-08-13] MEDS: VANCOMYCIN HCL 1000 MG/20 ML ORAL PO SCH ×3 (05:05→17:42)
[2018-08-13] MEDS: INSULIN LISPRO 100 UNITS/ML SUBCUT SCH ×3 (05:05→17:42)
[2018-08-13] MEDS: SUCRALFATE 1 G/10 ML UDC GT SCH ×3 (05:05→17:41)
[2018-08-13] MEDS: MICAFUNGIN 150 MG in SODIUM CHLORIDE 0.9% 100 ML IV SCH (06:38)
[2018-08-13 07:22] LABS: HEMATOCRIT. 21.8 % (36.0-48.0); HEMOGLOBIN. 7.1 g/dL (12.0-16.0); MEAN CORPUSCULAR HEMOGLOBIN 29.5 pg (28.0-32.0); MEAN CORPUSCULAR VOLUME 90.5 fL (81.0-99.0); MEAN PLATELET VOLUME 8.1 fl (7.4-10.4); PLATELET 364 x1000/uL (130-400); RED BLOOD CELL COUNT 2.41 mill/uL (4.2-5.4); RED CELL DISTRIBUTION WIDTH 16.2 % (11.6-14.6)
[2018-08-13 07:26] LABS: CHLORIDE 103 mEq/L (98-107)
[2018-08-13] MEDS ORDERED: LIDOCAINE HCL 1% 20ML VIAL (Pyxis) INJ ONE (08:10)
[2018-08-13] MEDS: PANTOPRAZOLE SODIUM 40 MG/VIAL IV SCH ×2 (09:04→22:38)
[2018-08-13] MEDS: ASCORBIC ACID 500 MG TABLET NG SCH (09:12)
[2018-08-13] MEDS: LACTOBACILLUS GG CAPSULE PO SCH (09:12)
[2018-08-13] MEDS: MULTIVITAMINS,THER W-MINERALS TABLET NG SCH (09:12)
[2018-08-13] MEDS: ZINC SULFATE 220 MG ( 50 ) CAPSULE NG SCH (09:12)
[2018-08-13] MEDS: MIDODRINE HCL 5MG TABLET PO SCH ×3 (09:12→17:42)
[2018-08-13] MEDS: MICONAZOLE NITRATE 2% OINT 71GM TOP SCH ×2 (09:12→22:40)
[2018-08-13] MEDS: AMIODARONE HCL 200 MG TABLET PO SCH ×2 (09:22→22:38)
[2018-08-13 10:58] LABS: PLATELET ESTIMATE NORMAL
[2018-08-14] VITALS (15 sets, daily range): BP systolic 89–157; BP diastolic 34–98
[2018-08-14] MEDS: IPRATROPIUM BROMIDE (0.02%) 0.5MG/2.5ML NEB HHN SCH ×7 (00:24→23:36)
[2018-08-14] MEDS: MEROPENEM 500 MG in SODIUM CHLORIDE 0.9% 50 ML IV SCH ×2 (02:07→14:16)
[2018-08-14] MEDS: VANCOMYCIN HCL 1000 MG/20 ML ORAL PO SCH ×3 (02:11→11:34)
[2018-08-14] MEDS: BLOOD SUGAR DIAGNOSTIC STRIP TEST SCH ×3 (05:19→18:21)
[2018-08-14] MEDS: INSULIN LISPRO 100 UNITS/ML SUBCUT SCH ×4 (05:19→18:00)
[2018-08-14] MEDS: MICAFUNGIN 150 MG in SODIUM CHLORIDE 0.9% 100 ML IV SCH (06:29)
[2018-08-14] MEDS: SUCRALFATE 1 G/10 ML UDC GT SCH ×4 (06:30→18:01)
[2018-08-14 06:46] LABS: HEMATOCRIT. 26.2 % (36.0-48.0); HEMOGLOBIN. 8.8 g/dL (12.0-16.0); MEAN CORPUSCULAR HEMOGLOBIN 29.6 pg (28.0-32.0); MEAN CORPUSCULAR VOLUME 88.1 fL (81.0-99.0); MEAN PLATELET VOLUME 7.7 fl (7.4-10.4); PLATELET 331 x1000/uL (130-400); RED BLOOD CELL COUNT 2.98 mill/uL (4.2-5.4); RED CELL DISTRIBUTION WIDTH 15.6 % (11.6-14.6)
[2018-08-14 07:19] LABS: CHLORIDE 104 mEq/L (98-107)
[2018-08-14] MEDS: PANTOPRAZOLE SODIUM 40 MG/VIAL IV SCH ×2 (09:42→21:47)
[2018-08-14] MEDS: ASCORBIC ACID 500 MG TABLET NG SCH (09:42)
[2018-08-14] MEDS: LACTOBACILLUS GG CAPSULE PO SCH (09:42)
[2018-08-14] MEDS: MULTIVITAMINS,THER W-MINERALS TABLET NG SCH (09:42)
[2018-08-14] MEDS: ZINC SULFATE 220 MG ( 50 ) CAPSULE NG SCH (09:42)
[2018-08-14] MEDS: MICONAZOLE NITRATE 2% OINT 71GM TOP SCH ×2 (09:43→21:40)
[2018-08-14] MEDS: AMIODARONE HCL 200 MG TABLET PO SCH ×2 (09:44→21:40)
[2018-08-14] MEDS: MIDODRINE HCL 5MG TABLET PO SCH ×3 (09:51→18:04)
[2018-08-14] MEDS ORDERED: DEXTROSE 50% WATER 50ML SYRINGE IV PRN (15:00)
[2018-08-14] MEDS: ACETAMINOPHEN 650MG/20.3ML UDC PO PRN (22:16)
[2018-08-15] VITALS (14 sets, daily range): BP systolic 97–123; BP diastolic 55–66
[2018-08-15] MEDS: SUCRALFATE 1 G/10 ML UDC GT SCH ×4 (00:10→16:50)
[2018-08-15] MEDS: MEROPENEM 500 MG in SODIUM CHLORIDE 0.9% 50 ML IV SCH ×2 (02:47→14:55)
[2018-08-15] MEDS: IPRATROPIUM BROMIDE (0.02%) 0.5MG/2.5ML NEB HHN SCH ×6 (03:36→23:58)
[2018-08-15] MEDS: INSULIN LISPRO 100 UNITS/ML SUBCUT SCH ×4 (06:00→18:00)
[2018-08-15] MEDS: BLOOD SUGAR DIAGNOSTIC STRIP TEST SCH ×4 (06:39→18:20)
[2018-08-15 07:51] LABS: HEMOGLOBIN. 9.2 g/dL (12.0-16.0); MEAN CORPUSCULAR HEMOGLOBIN 29.3 pg (28.0-32.0); MEAN CORPUSCULAR VOLUME 89.5 fL (81.0-99.0); MEAN PLATELET VOLUME 7.5 fl (7.4-10.4); PLATELET 344 x1000/uL (130-400); RED BLOOD CELL COUNT 3.13 mill/uL (4.2-5.4); RED CELL DISTRIBUTION WIDTH 15.7 % (11.6-14.6)
[2018-08-15 07:53] LABS: CHLORIDE 106 mEq/L (98-107)
[2018-08-15] MEDS: PANTOPRAZOLE SODIUM 40 MG/VIAL IV SCH ×2 (08:23→21:36)
[2018-08-15] MEDS: ASCORBIC ACID 500 MG TABLET NG SCH (08:28)
[2018-08-15] MEDS: MULTIVITAMINS,THER W-MINERALS TABLET NG SCH (08:28)
[2018-08-15] MEDS: ZINC SULFATE 220 MG ( 50 ) CAPSULE NG SCH (08:28)
[2018-08-15] MEDS: LACTOBACILLUS GG CAPSULE PO SCH (08:29)
[2018-08-15] MEDS: AMIODARONE HCL 200 MG TABLET PO SCH ×2 (08:29→21:36)
[2018-08-15] MEDS: MIDODRINE HCL 5MG TABLET PO SCH ×3 (08:30→16:49)
[2018-08-15] MEDS: MICAFUNGIN 150 MG in SODIUM CHLORIDE 0.9% 100 ML IV SCH (08:50)
[2018-08-15] MEDS: MICONAZOLE NITRATE 2% OINT 71GM TOP SCH ×2 (09:00→21:41)
[2018-08-15 14:56] LABS: PLATELET ESTIMATE NORMAL
[2018-08-16] VITALS (12 sets, daily range): BP systolic 84–123; BP diastolic 40–65
[2018-08-16] MEDS: SUCRALFATE 1 G/10 ML UDC GT SCH ×5 (00:31→23:17)
[2018-08-16] MEDS: BLOOD SUGAR DIAGNOSTIC STRIP TEST SCH ×5 (00:31→23:16)
[2018-08-16] MEDS: MEROPENEM 500 MG in SODIUM CHLORIDE 0.9% 50 ML IV SCH ×2 (02:30→14:11)
[2018-08-16] MEDS: IPRATROPIUM BROMIDE (0.02%) 0.5MG/2.5ML NEB HHN SCH ×6 (04:07→23:49)
[2018-08-16] MEDS: INSULIN LISPRO 100 UNITS/ML SUBCUT SCH ×5 (05:22→23:24)
[2018-08-16 06:38] LABS: HEMATOCRIT. 27.6 % (36.0-48.0); MEAN CORPUSCULAR VOLUME 89.3 fL (81.0-99.0); MEAN PLATELET VOLUME 7.9 fl (7.4-10.4); PLATELET 360 x1000/uL (130-400); RED BLOOD CELL COUNT 3.09 mill/uL (4.2-5.4); RED CELL DISTRIBUTION WIDTH 15.4 % (11.6-14.6)
[2018-08-16 06:57] LABS: CHLORIDE 108 mEq/L (98-107)
[2018-08-16 07:47] LABS: PLATELET ESTIMATE NORMAL
[2018-08-16] MEDS: PANTOPRAZOLE SODIUM 40 MG/VIAL IV SCH ×2 (08:12→21:03)
[2018-08-16] MEDS: ACETAMINOPHEN 650MG/20.3ML UDC PO PRN (08:12)
[2018-08-16] MEDS: LACTOBACILLUS GG CAPSULE PO SCH (08:12)
[2018-08-16] MEDS: ZINC SULFATE 220 MG ( 50 ) CAPSULE NG SCH (08:13)
[2018-08-16] MEDS: ASCORBIC ACID 500 MG TABLET NG SCH (08:13)
[2018-08-16] MEDS: MULTIVITAMINS,THER W-MINERALS TABLET NG SCH (08:13)
[2018-08-16] MEDS: AMIODARONE HCL 200 MG TABLET PO SCH ×2 (08:13→21:05)
[2018-08-16] MEDS: MIDODRINE HCL 5MG TABLET PO SCH ×3 (08:16→17:09)
[2018-08-16] MEDS: MICONAZOLE NITRATE 2% OINT 71GM TOP SCH ×2 (09:00→21:04)
[2018-08-16 12:40] LABS: PLATELET ESTIMATE NORMAL
[2018-08-17] VITALS (11 sets, daily range): BP systolic 73–143; BP diastolic 40–74
[2018-08-17] MEDS: IPRATROPIUM BROMIDE (0.02%) 0.5MG/2.5ML NEB HHN SCH ×6 (03:45→23:55)
[2018-08-17] MEDS: INSULIN LISPRO 100 UNITS/ML SUBCUT SCH ×4 (06:00→23:21)
[2018-08-17] MEDS: BLOOD SUGAR DIAGNOSTIC STRIP TEST SCH ×4 (06:15→23:20)
[2018-08-17] MEDS: SUCRALFATE 1 G/10 ML UDC GT SCH ×4 (06:15→23:35)
[2018-08-17] MEDS: MEROPENEM 500 MG in SODIUM CHLORIDE 0.9% 50 ML IV SCH ×2 (06:15→12:37)
[2018-08-17 06:20] LABS: CHLORIDE 106 mEq/L (98-107)
[2018-08-17 08:12] LABS: HEMATOCRIT. 30.1 % (36.0-48.0); HEMOGLOBIN. 9.9 g/dL (12.0-16.0); MEAN CORPUSCULAR VOLUME 88.6 fL (81.0-99.0); MEAN PLATELET VOLUME 7.9 fl (7.4-10.4); PLATELET 416 x1000/uL (130-400); RED CELL DISTRIBUTION WIDTH 15.1 % (11.6-14.6)
[2018-08-17] MEDS: ZINC SULFATE 220 MG ( 50 ) CAPSULE NG SCH (08:56)
[2018-08-17] MEDS: PANTOPRAZOLE SODIUM 40 MG/VIAL IV SCH ×2 (08:56→20:27)
[2018-08-17] MEDS: ASCORBIC ACID 500 MG TABLET NG SCH (08:56)
[2018-08-17] MEDS: LACTOBACILLUS GG CAPSULE PO SCH (08:56)
[2018-08-17] MEDS: MULTIVITAMINS,THER W-MINERALS TABLET NG SCH (08:56)
[2018-08-17] MEDS: MIDODRINE HCL 5MG TABLET PO SCH ×3 (08:57→17:59)
[2018-08-17] MEDS: AMIODARONE HCL 200 MG TABLET PO SCH ×2 (08:58→20:27)
[2018-08-17] MEDS: MICONAZOLE NITRATE 2% OINT 71GM TOP SCH ×2 (08:58→20:27)
[2018-08-17 10:48] LABS: PLATELET ESTIMATE INCREASED
[2018-08-18] VITALS (12 sets, daily range): BP systolic 99–147; BP diastolic 42–78
[2018-08-18] MEDS: MEROPENEM 500 MG in SODIUM CHLORIDE 0.9% 50 ML IV SCH ×2 (01:41→13:11)
[2018-08-18] MEDS: IPRATROPIUM BROMIDE (0.02%) 0.5MG/2.5ML NEB HHN SCH ×5 (04:07→20:28)
[2018-08-18] MEDS: SUCRALFATE 1 G/10 ML UDC GT SCH ×3 (05:34→18:18)
[2018-08-18] MEDS: INSULIN LISPRO 100 UNITS/ML SUBCUT SCH ×3 (05:34→18:00)
[2018-08-18] MEDS: BLOOD SUGAR DIAGNOSTIC STRIP TEST SCH ×3 (05:34→18:17)
[2018-08-18 06:22] LABS: CHLORIDE 104 mEq/L (98-107)
[2018-08-18 06:36] LABS: HEMATOCRIT. 29.2 % (36.0-48.0); HEMOGLOBIN. 9.6 g/dL (12.0-16.0); MEAN CORPUSCULAR HEMOGLOBIN 29.9 pg (28.0-32.0); MEAN CORPUSCULAR VOLUME 90.6 fL (81.0-99.0); MEAN PLATELET VOLUME 8.4 fl (7.4-10.4); PLATELET 479 x1000/uL (130-400); RED BLOOD CELL COUNT 3.22 mill/uL (4.2-5.4)
[2018-08-18] MEDS: ZINC SULFATE 220 MG ( 50 ) CAPSULE NG SCH (09:11)
[2018-08-18] MEDS: PANTOPRAZOLE SODIUM 40 MG/VIAL IV SCH ×2 (09:11→21:19)
[2018-08-18] MEDS: MULTIVITAMINS,THER W-MINERALS TABLET NG SCH (09:12)
[2018-08-18] MEDS: MIDODRINE HCL 5MG TABLET PO SCH ×3 (09:12→18:18)
[2018-08-18] MEDS: LACTOBACILLUS GG CAPSULE PO SCH (09:12)
[2018-08-18] MEDS: MICONAZOLE NITRATE 2% OINT 71GM TOP SCH ×2 (09:12→21:19)
[2018-08-18] MEDS: ASCORBIC ACID 500 MG TABLET NG SCH (09:12)
[2018-08-18 10:48] LABS: PLATELET ESTIMATE INCREASED
[2018-08-18] MEDS ORDERED: LIDOCAINE HCL/EPINEPHRINE 1%-EPI 1:100,000 20 ML VIAL INFIL NR (13:00)
[2018-08-19] VITALS (12 sets, daily range): BP systolic 90–132; BP diastolic 31–85
[2018-08-19] MEDS: IPRATROPIUM BROMIDE (0.02%) 0.5MG/2.5ML NEB HHN SCH ×6 (00:30→20:15)
[2018-08-19] MEDS: BLOOD SUGAR DIAGNOSTIC STRIP TEST SCH ×5 (00:30→23:23)
[2018-08-19] MEDS: SUCRALFATE 1 G/10 ML UDC GT SCH ×5 (00:38→23:25)
[2018-08-19] MEDS: MEROPENEM 500 MG in SODIUM CHLORIDE 0.9% 50 ML IV SCH (02:46)
[2018-08-19] MEDS: INSULIN LISPRO 100 UNITS/ML SUBCUT SCH ×5 (06:00→23:23)
[2018-08-19] MEDS: ASCORBIC ACID 500 MG TABLET NG SCH (08:25)
[2018-08-19] MEDS: MIDODRINE HCL 5MG TABLET PO SCH ×3 (08:25→21:28)
[2018-08-19] MEDS: MULTIVITAMINS,THER W-MINERALS TABLET NG SCH (08:25)
[2018-08-19] MEDS: PANTOPRAZOLE SODIUM 40 MG/VIAL IV SCH ×2 (08:25→21:28)
[2018-08-19] MEDS: LACTOBACILLUS GG CAPSULE PO SCH (08:25)
[2018-08-19] MEDS: ZINC SULFATE 220 MG ( 50 ) CAPSULE NG SCH (08:25)
[2018-08-19] MEDS: MICONAZOLE NITRATE 2% OINT 71GM TOP SCH ×2 (08:26→21:29)
[2018-08-19 11:05] LABS: HEMATOCRIT. 27.5 % (36.0-48.0); HEMOGLOBIN. 8.9 g/dL (12.0-16.0); MEAN CORPUSCULAR HEMOGLOBIN 29.2 pg (28.0-32.0); MEAN CORPUSCULAR VOLUME 90.3 fL (81.0-99.0); MEAN PLATELET VOLUME 7.9 fl (7.4-10.4); PLATELET 422 x1000/uL (130-400); RED BLOOD CELL COUNT 3.05 mill/uL (4.2-5.4); RED CELL DISTRIBUTION WIDTH 15.3 % (11.6-14.6)
[2018-08-19 11:32] LABS: CHLORIDE 105 mEq/L (98-107)
[2018-08-19 11:39] LABS: PLATELET ESTIMATE SLIGHTLY INCREASED
[2018-08-20] VITALS (12 sets, daily range): BP systolic 94–156; BP diastolic 33–97
[2018-08-20] MEDS: IPRATROPIUM BROMIDE (0.02%) 0.5MG/2.5ML NEB HHN SCH ×3 (00:19→20:40)
[2018-08-20] MEDS: BLOOD SUGAR DIAGNOSTIC STRIP TEST SCH ×3 (05:11→17:38)
[2018-08-20] MEDS: INSULIN LISPRO 100 UNITS/ML SUBCUT SCH ×4 (05:11→17:38)
[2018-08-20] MEDS: SUCRALFATE 1 G/10 ML UDC GT SCH ×3 (05:12→17:38)
[2018-08-20] MEDS: MIDODRINE HCL 5MG TABLET PO SCH ×3 (05:12→22:37)
[2018-08-20 08:42] LABS: BASOPHILS % 0.4 % (0.0-2.0); EOSINOPHILS % 0.7 % (0.0-5.0); HEMATOCRIT. 27.9 % (36.0-48.0); LYMPHOCYTES % 12.9 % (20.0-50.0); MEAN CORPUSCULAR HEMOGLOBIN 29.2 pg (28.0-32.0); MEAN CORPUSCULAR VOLUME 90.8 fL (81.0-99.0); MEAN PLATELET VOLUME 8.6 fl (7.4-10.4); MONOCYTES % 4.3 % (2.0-8.0); NEUTROPHILS % 81.7 % (40.0-76.0); PLATELET 504 x1000/uL (130-400); RED BLOOD CELL COUNT 3.07 mill/uL (4.2-5.4); RED CELL DISTRIBUTION WIDTH 15.1 % (11.6-14.6)
[2018-08-20 09:24] LABS: CHLORIDE 104 mEq/L (98-107)
[2018-08-20] MEDS: ZINC SULFATE 220 MG ( 50 ) CAPSULE GT SCH (10:15)
[2018-08-20] MEDS: PANTOPRAZOLE SODIUM 40 MG/VIAL IV SCH ×2 (10:15→22:37)
[2018-08-20] MEDS: MULTIVITAMINS,THER W-MINERALS TABLET GT SCH (10:15)
[2018-08-20] MEDS: ASCORBIC ACID 500 MG TABLET GT SCH (10:16)
[2018-08-20] MEDS: LACTOBACILLUS GG CAPSULE PO SCH (10:16)
[2018-08-20] MEDS: ACETAMINOPHEN 650MG/20.3ML UDC PO PRN (13:09)
[2018-08-20] MEDS: LEVOFLOXACIN 500MG PREMIX 100 ML IV SCH (17:38)
[2018-08-21] VITALS (12 sets, daily range): BP systolic 110–137; BP diastolic 52–91
[2018-08-21] MEDS: IPRATROPIUM BROMIDE (0.02%) 0.5MG/2.5ML NEB HHN SCH ×3 (00:18→21:01)
[2018-08-21] MEDS: INSULIN LISPRO 100 UNITS/ML SUBCUT SCH ×3 (06:00→12:00)
[2018-08-21] MEDS: MIDODRINE HCL 5MG TABLET PO SCH ×3 (06:15→22:46)
[2018-08-21] MEDS: BLOOD SUGAR DIAGNOSTIC STRIP TEST SCH ×3 (06:16→12:00)
[2018-08-21 06:38] LABS: HEMATOCRIT. 27.6 % (36.0-48.0); HEMOGLOBIN. 8.7 g/dL (12.0-16.0); MEAN CORPUSCULAR HEMOGLOBIN 28.7 pg (28.0-32.0); MEAN CORPUSCULAR VOLUME 90.5 fL (81.0-99.0); MEAN PLATELET VOLUME 8.2 fl (7.4-10.4); PLATELET 468 x1000/uL (130-400); RED BLOOD CELL COUNT 3.05 mill/uL (4.2-5.4); RED CELL DISTRIBUTION WIDTH 15.1 % (11.6-14.6)
[2018-08-21 07:23] LABS: CHLORIDE 105 mEq/L (98-107)
[2018-08-21] MEDS: LACTOBACILLUS GG CAPSULE PO SCH (09:57)
[2018-08-21] MEDS: ZINC SULFATE 220 MG ( 50 ) CAPSULE GT SCH (09:57)
[2018-08-21] MEDS: MULTIVITAMINS,THER W-MINERALS TABLET GT SCH (09:57)
[2018-08-21] MEDS: ASCORBIC ACID 500 MG TABLET GT SCH (09:57)
[2018-08-21 10:31] LABS: PLATELET ESTIMATE INCREASED
[2018-08-21] MEDS: LEVOFLOXACIN 500MG PREMIX 100 ML IV SCH (14:21)
[2018-08-22] VITALS (12 sets, daily range): BP systolic 103–151; BP diastolic 51–92
[2018-08-22] MEDS: IPRATROPIUM BROMIDE (0.02%) 0.5MG/2.5ML NEB HHN SCH ×4 (00:41→20:05)
[2018-08-22] MEDS: MIDODRINE HCL 5MG TABLET PO SCH ×3 (05:18→22:11)
[2018-08-22] MEDS: INSULIN LISPRO 100 UNITS/ML SUBCUT SCH ×4 (06:00→18:00)
[2018-08-22] MEDS: BLOOD SUGAR DIAGNOSTIC STRIP TEST SCH ×4 (06:48→18:30)
[2018-08-22] MEDS: ZINC SULFATE 220 MG ( 50 ) CAPSULE GT SCH (08:30)
[2018-08-22] MEDS: MULTIVITAMINS,THER W-MINERALS TABLET GT SCH (08:30)
[2018-08-22] MEDS: LACTOBACILLUS GG CAPSULE PO SCH (08:30)
[2018-08-22] MEDS: ASCORBIC ACID 500 MG TABLET GT SCH (08:30)
[2018-08-22] MEDS: LEVOFLOXACIN 500MG PREMIX 100 ML IV SCH (14:56)
[2018-08-22] MEDS: ACETAMINOPHEN 650MG/20.3ML UDC PO PRN (15:16)
[2018-08-23] VITALS (12 sets, daily range): BP systolic 101–157; BP diastolic 52–73
[2018-08-23] MEDS: IPRATROPIUM BROMIDE (0.02%) 0.5MG/2.5ML NEB HHN SCH ×5 (00:34→17:06)
[2018-08-23] MEDS: INSULIN LISPRO 100 UNITS/ML SUBCUT SCH ×4 (06:00→17:38)
[2018-08-23 06:26] LABS: BASOPHILS % 0.4 % (0.0-2.0); EOSINOPHILS % 1.4 % (0.0-5.0); HEMATOCRIT. 23.8 % (36.0-48.0); HEMOGLOBIN. 7.9 g/dL (12.0-16.0); MEAN CORPUSCULAR HEMOGLOBIN 29.6 pg (28.0-32.0); MEAN CORPUSCULAR VOLUME 88.8 fL (81.0-99.0); MEAN PLATELET VOLUME 7.4 fl (7.4-10.4); MONOCYTES % 6.3 % (2.0-8.0); NEUTROPHILS % 69.9 % (40.0-76.0); PLATELET 474 x1000/uL (130-400); RED BLOOD CELL COUNT 2.68 mill/uL (4.2-5.4); RED CELL DISTRIBUTION WIDTH 14.4 % (11.6-14.6)
[2018-08-23] MEDS: BLOOD SUGAR DIAGNOSTIC STRIP TEST SCH ×4 (06:52→17:38)
[2018-08-23] MEDS: MIDODRINE HCL 5MG TABLET PO SCH ×3 (06:52→22:30)
[2018-08-23 08:41] LABS: CHLORIDE 104 mEq/L (98-107)
[2018-08-23] MEDS: MULTIVITAMINS,THER W-MINERALS TABLET GT SCH (10:16)
[2018-08-23] MEDS: ZINC SULFATE 220 MG ( 50 ) CAPSULE GT SCH (10:16)
[2018-08-23] MEDS: LACTOBACILLUS GG CAPSULE PO SCH (10:16)
[2018-08-23] MEDS: ASCORBIC ACID 500 MG TABLET GT SCH (10:16)
[2018-08-23] MEDS: ACETAMINOPHEN 650MG/20.3ML UDC PO PRN (10:23)
[2018-08-23] MEDS: CLONIDINE 0.2MG TABLET PO PRN (10:23)
[2018-08-23] MEDS: LEVOFLOXACIN 500MG PREMIX 100 ML IV SCH (15:13)
[2018-08-24] VITALS (11 sets, daily range): BP systolic 111–132; BP diastolic 63–78
[2018-08-24] MEDS: BLOOD SUGAR DIAGNOSTIC STRIP TEST SCH ×4 (06:00→18:53)
[2018-08-24] MEDS: INSULIN LISPRO 100 UNITS/ML SUBCUT SCH ×4 (06:00→18:00)
[2018-08-24] MEDS: MIDODRINE HCL 5MG TABLET PO SCH ×2 (06:05→14:52)
[2018-08-24 07:01] LABS: BASOPHILS % 0.3 % (0.0-2.0); EOSINOPHILS % 0.7 % (0.0-5.0); HEMOGLOBIN. 8.4 g/dL (12.0-16.0); LYMPHOCYTES % 26.2 % (20.0-50.0); MEAN CORPUSCULAR HEMOGLOBIN 28.9 pg (28.0-32.0); MEAN CORPUSCULAR VOLUME 89.1 fL (81.0-99.0); MEAN PLATELET VOLUME 7.3 fl (7.4-10.4); MONOCYTES % 6.5 % (2.0-8.0); NEUTROPHILS % 66.3 % (40.0-76.0); PLATELET 507 x1000/uL (130-400); RED BLOOD CELL COUNT 2.91 mill/uL (4.2-5.4); RED CELL DISTRIBUTION WIDTH 14.4 % (11.6-14.6)
[2018-08-24 07:18] LABS: CHLORIDE 103 mEq/L (98-107)
[2018-08-24] MEDS: ZINC SULFATE 220 MG ( 50 ) CAPSULE GT SCH (09:25)
[2018-08-24] MEDS: MULTIVITAMINS,THER W-MINERALS TABLET GT SCH (09:25)
[2018-08-24] MEDS: LACTOBACILLUS GG CAPSULE PO SCH (09:25)
[2018-08-24] MEDS: ASCORBIC ACID 500 MG TABLET GT SCH (09:25)
[2018-08-24] MEDS ORDERED: ERYTHROMYCIN BASE 0.5% OPHTH OINT 3.5GM RIGHTEYE SCH (14:00)
[2018-08-24] MEDS ORDERED: OR220 GT (18:19)
[2018-08-24] MEDS ORDERED: ERYT1OIN6 RIGHTEYE (18:19)
[2018-08-24] MEDS ORDERED: LACT1CAP77 PO (18:19)
[2018-08-24] MEDS ORDERED: MIDO5TAB PO (18:19)
[2018-08-24] MEDS ORDERED: ASCO500T20 GT (18:19)
[2018-08-24] MEDS ORDERED: LEVO750T46 MT (18:19)
[2018-08-24] MEDS: LEVOFLOXACIN 500MG PREMIX 100 ML IV SCH (19:07)
== END 2018-08-24 21:50 | DRG 4 ==
LOC: ER 22:10 → 5EST 07-15 02:00 → EDBEDREQ 07-15 02:02 → ENRESERV 07-15 04:51 → MICUSO 07-16 15:21 → 5EST 07-17 14:20 → 5WST 07-27 18:23 → 3WST 07-29 21:41 → MICUSO 07-29 22:46 → 5EST 08-06 12:51
PROVIDERS: ADMIT Internal Medicine; ATTEND Internal Medicine
PROC: B5181ZA Fluoroscopy of Superior Vena Cava using Low Osmolar Contrast, Guidance (ICD-10-PCS; 2018-07-16)
PROC: 02HV33Z Insertion of Infusion Device into Superior Vena Cava, Percutaneous Approach (ICD-10-PCS; 2018-07-16)
PROC: B548ZZA Ultrasonography of Superior Vena Cava, Guidance (ICD-10-PCS; 2018-07-16)
PROC: 0QBK0ZZ Excision of Left Fibula, Open Approach (ICD-10-PCS; principal; 2018-07-21)
PROC: 0JBL0ZZ Excision of Right Upper Leg Subcutaneous Tissue and Fascia, Open Approach (ICD-10-PCS; 2018-07-21)
PROC: 0KBP0ZZ Excision of Left Hip Muscle, Open Approach (ICD-10-PCS; 2018-07-21)
PROC: 0KBN0ZZ Excision of Right Hip Muscle, Open Approach (ICD-10-PCS; 2018-07-21)
PROC: 0QBP0ZZ Excision of Left Metatarsal, Open Approach (ICD-10-PCS; 2018-07-21)
PROC: 0DH63UZ Insertion of Feeding Device into Stomach, Percutaneous Approach (ICD-10-PCS; 2018-07-23)
PROC: 0DB68ZX Excision of Stomach, Via Natural or Artificial Opening Endoscopic, Diagnostic (ICD-10-PCS; 2018-07-23)
PROC: 30233N1 Transfusion of Nonautologous Red Blood Cells into Peripheral Vein, Percutaneous Approach (ICD-10-PCS; 2018-07-23)
PROC: 0W993ZZ Drainage of Right Pleural Cavity, Percutaneous Approach (ICD-10-PCS; 2018-07-28)
PROC: 0W9930Z Drainage of Right Pleural Cavity with Drainage Device, Percutaneous Approach (ICD-10-PCS; 2018-07-28)
PROC: 5A1955Z Respiratory Ventilation, Greater than 96 Consecutive Hours (ICD-10-PCS; 2018-07-29)
PROC: 0BH17EZ Insertion of Endotracheal Airway into Trachea, Via Natural or Artificial Opening (ICD-10-PCS; 2018-07-29)
PROC: 5A09357 Assistance with Respiratory Ventilation, Less than 24 Consecutive Hours, Continuous Positive Airway Pressure (ICD-10-PCS; 2018-07-29)
PROC: 0B110F4 Bypass Trachea to Cutaneous with Tracheostomy Device, Open Approach (ICD-10-PCS; 2018-08-03)
PROC: 0KBN0ZZ Excision of Right Hip Muscle, Open Approach (ICD-10-PCS; 2018-08-11)
PROC: 0JBL0ZZ Excision of Right Upper Leg Subcutaneous Tissue and Fascia, Open Approach (ICD-10-PCS; 2018-08-11)
PROC: 0KBP0ZZ Excision of Left Hip Muscle, Open Approach (ICD-10-PCS; 2018-08-11)
PROC: B548ZZA Ultrasonography of Superior Vena Cava, Guidance (ICD-10-PCS; 2018-08-13)
PROC: 02HV33Z Insertion of Infusion Device into Superior Vena Cava, Percutaneous Approach (ICD-10-PCS; 2018-08-13)
PROC: 0JBD0ZZ Excision of Right Upper Arm Subcutaneous Tissue and Fascia, Open Approach (ICD-10-PCS; 2018-08-19)
DX: A41.50 Gram-negative sepsis, unspecified (principal); N17.0 Acute kidney failure with tubular necrosis; E43 Unspecified severe protein-calorie malnutrition; G93.40 Encephalopathy, unspecified; G93.41 Metabolic encephalopathy; E87.3 Alkalosis; B49 Unspecified mycosis; R64 Cachexia; I95.9 Hypotension, unspecified; I96 Gangrene, not elsewhere classified; J18.9 Pneumonia, unspecified organism; J90 Pleural effusion, not elsewhere classified; J96.00 Acute respiratory failure, unspecified whether with hypoxia or hypercapnia; Z99.11 Dependence on respirator [ventilator] status; L89.154 Pressure ulcer of sacral region, stage 4; L89.524 Pressure ulcer of left ankle, stage 4; L89.213 Pressure ulcer of right hip, stage 3; I27.20 Pulmonary hypertension, unspecified; E16.2 Hypoglycemia, unspecified; K26.9 Duodenal ulcer, unspecified as acute or chronic, without hemorrhage or perforation; D64.9 Anemia, unspecified; D68.59 Other primary thrombophilia; E78.5 Hyperlipidemia, unspecified; E86.0 Dehydration; E87.0 Hyperosmolality and hypernatremia; E87.6 Hypokalemia; F03.90 Unspecified dementia, unspecified severity, without behavioral disturbance, psychotic disturbance, mood disturbance, and anxiety; H10.89 Other conjunctivitis; I10 Essential (primary) hypertension; I42.9 Cardiomyopathy, unspecified; I48.0 Paroxysmal atrial fibrillation; J44.0 Chronic obstructive pulmonary disease with (acute) lower respiratory infection; J95.811 Postprocedural pneumothorax; J98.11 Atelectasis; K29.60 Other gastritis without bleeding; E83.51 Hypocalcemia; K44.9 Diaphragmatic hernia without obstruction or gangrene; L89.159 Pressure ulcer of sacral region, unspecified stage; L97.929 Non-pressure chronic ulcer of unspecified part of left lower leg with unspecified severity; M48.061 Spinal stenosis, lumbar region without neurogenic claudication; E86.9 Volume depletion, unspecified; R13.10 Dysphagia, unspecified; R62.7 Adult failure to thrive; T46.0X5A Adverse effect of cardiac-stimulant glycosides and drugs of similar action, initial encounter; Y83.8 Other surgical procedures as the cause of abnormal reaction of the patient, or of later complication, without mention of misadventure at the time of the procedure; Y92.238 Other place in hospital as the place of occurrence of the external cause; E04.9 Nontoxic goiter, unspecified; K57.90 Diverticulosis of intestine, part unspecified, without perforation or abscess without bleeding; R73.9 Hyperglycemia, unspecified; Z82.3 Family history of stroke; Z74.01 Bed confinement status; I69.320 Aphasia following cerebral infarction; Y92.89 Other specified places as the place of occurrence of the external cause; Z68.23 Body mass index [BMI] 23.0-23.9, adult; Z79.1 Long term (current) use of non-steroidal anti-inflammatories (NSAID); Z79.899 Other long term (current) drug therapy
CPT/HCPCS: 31500; 32555; 36415; 36569; 36600; 71045; 71250; 72170; 73620; 74176; 76937; 77001; 80048; 80061; 80162; 80202; 82270; 82375; 82533; 82550; 82607; 82705; 82728; 82746; 82805; 82947; 82962; 83036; 83540; 83550; 83605; 83735; 83880; 84100; 84134; 84145; 84443; 84484; 85014; 85018; 85027; 85044; 85651; 86140; 86850; 86900; 86920; 87015; 87045; 87077; 87106; 87177; 87186; 87209; 87427; 87449; 87804; 88305; 88312; 88313; 89055; 92610; 93005; 93306; 93923; 93970; 93971; 94002; 94003; 94640; 94660; 96365; 96366; 96368; 99291; A6261; C1725; C1893; C9113; J0278; J0330; J0696; J1120; J1160; J1200; J1650; J1815; J1940; J1956; J2185; J2248; J2250; J2370; J2405; J2543; J2704; J2765; J2920; J3010; J3370; J3475; J3480; J3490; J7030; J7040; J7042; J7050; J7060; J7070; J7512; J7608; J7620; P9016; Q9963; Q9967; A4315